=== PATIENT | female | born 1980 | race Caucasian/White ===

== ENCOUNTER 2021-09-18 16:25 | Emergency (ER) | payer BC, SELFPAY ==
[2021-09-18 16:37] VITALS: BP 127/99; PULSE 96; RESP 18; TEMP 36.2; O2SAT 100
--- NOTE | 2021-09-18 17:06 | PC.NURSE ---
PT CAME TO DESK TO REPORT HER PCP JUST CALLED HER BACK AND IS GOING TO CALL IN ABX . PT REPORTS SHE WILL COME BACK TO ED NEEDED BUT AT THIS TIME WOULD LIKE TO AVOID ED CHARGE IF PCP CAN CALL IN RX
== END 2021-09-18 17:06 | disposition left against medical advice (07) ==
PROVIDERS: PCP Nurse Practitioner
DX: M25.461 Effusion, right knee (principal)
CPT/HCPCS: 99199

== ENCOUNTER 2023-05-28 07:09 | Outpatient (CLI) | payer BC, SELFPAY ==
[2023-05-28 08:27] LABS: Basophils Absolute Auto 0.1 K/mm3 (0.0-0.1); Basophils Percent Auto 0.9 % (0.2-1.2); Eosinophils Absolute Auto 0.3 K/mm3 (0-0.3); Eosinophils Percent Auto 3.6 % (0-4.4); Hematocrit 43.4 % (37.0-47.0); Hemoglobin 14.6 g/dL (12.0-15.0); Immature Granulocyte Absolute 0.01 K/mm3 (0.00-0.031); Immature Granulocyte Percent A 0.1 % (0-0.5); Lymphocytes Absolute Auto 2.38 K/mm3 (0.9-3.2); Lymphocytes Percent Auto 31.7 % (18.3-44.2); Mean Corpuscular HGB Conc 33.6 g/dl (32-36); Mean Corpuscular Hemoglobin 30.5 pg (26-34); Mean Corpuscular Volume 90.8 fl (80-100); Mean Platelet Volume 9.6 fl (7.4-10.4); Monocytes Absolute Auto 0.6 K/mm3 (0.1-0.6); Monocytes Percent Auto 7.3 % (2.6-8.5); Neutrophils Absolute Auto 4.2 K/mm3 (1.3-6.7); Neutrophils Percent Auto 56.4 % (45.5-73.1); Platelet Count Result 332 k/mm3 (150-375); Red Blood Count 4.78 M/mm3 (4.2-5.4); Red Cell Distribution Width 12.3 % (11.5-14.5); White Blood Count 7.5 K/mm3 (4.5-10.0)
[2023-05-28 08:40] LABS: Alanine Aminotransferase 20 U/L (6-35); Albumin Level 4.4 g/dL (3.5-5.1); Alkaline Phosphatase 63 U/L (38-126); Anion Gap 6 mmol/L (8-16); Aspartate Amino Transferase 28 U/L (14-36); Bilirubin,Total 0.6 mg/dL (0.2-1.3); Blood Urea Nitrogen 14 mg/dL (7-17); Calcium 9.1 mg/dL (8.4-10.2); Carbon Dioxide 28 mmol/L (22-30); Chloride 104 mmol/L (98-107); Estimated Glomerular Filt Rate > 60; Glucose 99 mg/dL (65-110); Potassium 3.6 mmol/L (3.4-5.0); Sodium 138 mmol/L (137-145)
[2023-05-28 08:42] LABS: Rheumatoid Factor < 12.0 IU/ML (<12)
[2023-05-28 08:45] LABS: Hemoglobin A1C 5.3 % (<5.7)
[2023-05-30 22:05] LABS: Cyclic Citrullinated Peptide <16 Units (<20)
[2023-05-31 04:39] LABS: Thyroid Peroxidase Antibodies <1 IU/mL (<9)
[2023-05-31 22:49] LABS: Immunoglobulin A 179 mg/dL (47-310); TTG IGA AB <1.0 U/mL (<15.0)
== END 2023-05-28 07:10 | disposition home or self-care (01) ==
LOC: ANHLAB 07:14
PROVIDERS: PCP Nurse Practitioner; Visit Provider Nurse Practitioner
DX: M25.50 Pain in unspecified joint (principal); Z13.29 Encounter for screening for other suspected endocrine disorder; K92.1 Melena; Z13.228 Encounter for screening for other metabolic disorders; Z13.0 Encounter for screening for diseases of the blood and blood-forming organs and certain disorders involving the immune mechanism
CPT/HCPCS: 36415; 80053; 82784; 83036; 84443; 85025; 86038; 86200; 86364; 86376; 86430

== ENCOUNTER 2023-05-29 09:46 | Outpatient (CLI) | payer BC, SELFPAY ==
[2023-05-29 10:59] LABS: IFOB Positive Control Positive; Immunochemical Fecal Occult Bl Negative (N)
[2023-06-06 02:57] LABS: Calprotectin, Stool 21 mcg/g
== END 2023-05-29 09:47 | disposition home or self-care (01) ==
LOC: ANHLAB 09:53
PROVIDERS: PCP Nurse Practitioner; Visit Provider Nurse Practitioner
DX: K92.1 Melena (principal)
CPT/HCPCS: 82274; 83993

== ENCOUNTER 2023-06-09 01:27 | Day surgery (SDC) | payer BC, SELFPAY ==
[2023-06-06 13:52] VITALS: BMI 32.1
[2023-06-09 11:41] VITALS: BP 110/83; PULSE 73; RESP 18; TEMP 36.2; O2SAT 100
[2023-06-09] MEDS: LACTATED RINGERS 1,000 ML 150 ML IV CONT (11:49)
--- NOTE | 2023-06-09 12:28 | P.PNAN_ITS ---
Anes - Initial Pre Proc Eval Procedure: Operation Date: 06/09/23 13:00 Proposed Procedures p Colonoscopy - Elías Graham MD Date/Time: 06/09/23 12:28 Surgeon: Elías Graham MD Pre Op Diagnosis: Mixed irritable bowel syndrome, Patient Data Age: 43 Gender: F Height: 1.7 m Weight: 92 kg Last Vital Signs Temp 97.1 F L 06/09/23 11:41 Pulse 73 06/09/23 11:41 Resp 18 06/09/23 11:41 BP 110/83 06/09/23 11:41 Pulse Ox 100 06/09/23 11:41 O2 Del Method Room Air 06/09/23 11:41 Allergies Allergy/AdvReac Type Severity Reaction Status Date / Time adhesive Allergy Unknown BLISTERS Verified 06/09/23 11:39 Home Medications Medication Instructions Recorded Confirmed Type bupropion HCl 150 mg tablet,12 hr 150 mg PO DAILY 05/30/23 06/06/23 History sustained-release (Wellbutrin SR) buspirone 10 mg tablet 10 mg PO BID 05/30/23 06/06/23 History levonorgestrel 0.1 mg-ethinyl 1 tablet PO DAILY 05/30/23 06/06/23 History estradiol 20 mcg (21) tablet naltrexone 50 mg tablet 50 mg PO DAILY 05/30/23 06/06/23 History Patient hx anesthesia problems: none Family hx anesthesia problems: none Results Review: All pre-operative results and documents have been reviewed as part of the pre- operative evaluation. [facility] Past Medical History Medical History (Updated 05/30/23 @ 09:37 by ROSEY Mcadams) BRBPR (bright red blood per rectum) Surgical History Surgical History (Updated 05/30/23 @ 09:49 by ROSEY Mcadams) History of cholecystectomy 2016 Social History Social History Smoking status: Former smoker Tobacco type: e-cigarettes/vaping Additional smoking assessment comments: vaping for 1 year- quit in 2019 Alcohol intake: current Drinks per week: 4 Substance use type: marijuana Other substance usage details: edibles Living arrangements: with family Spiritual care concerns: No Anes - Eval Final PreProcedure Day of Procedure 06/09/23 12:28 Patient weight: obese Heart: regular rate and rhythm Lungs: clear to auscultation Airway: Mallampati scale class II Neurological: alert and oriented Last oral intake: >/= 8 hours ASA classification: II Emergent: no Anesthetic plan: proceed Anesthesia type and monitoring: general GIVS and standard monitoring Results Review: All pre-operative results and documents have been reviewed as part of the pre- operative evaluation. Informed Consent: The patient's anesthetic plan and its attendant risks and benefits were discussed with the patient/family/POA. Questions were solicited and answers provided to the satisfaction of the patient/family/POA.
--- NOTE | 2023-06-09 12:56 | WPDHPUPDATE1 ---
History and Physical Update Update Date/Time: 06/09/23 12:56 History and Physical has been reviewed, including an updated exam of the patient. There are NO changes in the patient's condition. Risks, benefits, and alternatives have been discussed and questions answered. Patient agrees to proceed with procedure.
[2023-06-09 13:14] VITALS: BP 111/72; PULSE 64; RESP 18; O2SAT 100
[2023-06-09 13:24] VITALS: BP 115/74; PULSE 64; RESP 18; O2SAT 97
[2023-06-09 13:34] VITALS: BP 107/70; PULSE 62; RESP 18; O2SAT 100
== END 2023-06-09 13:45 | disposition home or self-care (01) ==
PROVIDERS: PCP Nurse Practitioner; Visit Provider Internal Medicine Gastroenterology
PROC: 0DJD8ZZ Inspection of Lower Intestinal Tract, Via Natural or Artificial Opening Endoscopic (ICD-10-PCS; CPT 45378; principal; 2023-06-09 13:00)
DX: K58.2 Mixed irritable bowel syndrome (principal); K64.8 Other hemorrhoids; F17.290 Nicotine dependence, other tobacco product, uncomplicated; F12.90 Cannabis use, unspecified, uncomplicated; E66.9 Obesity, unspecified; Z68.31 Body mass index [BMI] 31.0-31.9, adult
CPT/HCPCS: 45380; 88305; J7120

== ENCOUNTER 2023-10-03 08:51 | Emergency (ER) | payer BC, SELFPAY ==
--- NOTE | ~2023-10-03 | CT_ITS ---
EXAMINATION: CT brain wo con INDICATION: Dizziness COMPARISON: 08/10/1940 TECHNIQUE: Standard unenhanced head CT. The dose-length product (DLP) was 605.33 mGy-cm. The mA was a djusted according to patient size. Iterative reconstruction technique was employed. FINDINGS: No intracranial hemorrhage, acute infarction, or abnormal mass lesion. The ventricles are n ormal. No abnormal mass effect or midline shift. The alejandro-white matter differentiation is normal. The basal cisterns are patent. The orbits are normal. The paranasal sinuses, mastoids and calvarium are normal. IMPRESSION: 1. No acute intracranial abnormality. Reviewed, dictated and finalized at location B. [employer]
--- NOTE | ~2023-10-03 | XR_ITS ---
EXAMINATION: XR chest 2V DATE: 10/03/2023 10:09 INDICATION: Dizziness, tachycardia TECHNIQUE: PA and lateral views of the chest are obtained. COMPARISON: 12/20/2014 FINDINGS: The lungs are free of acute opacities. No pleural effusion or pneumothorax. The cardiomedia stinal silhouette is normal. The visualized bones and soft tissues are unremarkable. IMPRESSION: 1. No acute cardiopulmonary abnormality. Reviewed, dictated and finalized at location B. CHECKER
--- NOTE | 2023-10-03 08:52 | ECG_ITS ---
Measurements Intervals [place] Rate: 105 P: 27 WV: 157 QRS: 33 QRSD: 90 T: 34 QT: 348 QTc: 460 Interpretive Statements SINUS TACHYCARDIA OTHERWISE NORMAL ELECTROCARDIOGRAM NO PREVIOUS ECG AVAILABLE FOR COMPARISON Electronically Signed On 10-03-2023 15:31:28 [employer]IN[employer] IN[employer] by Samuel Harris M.D.
[2023-10-03 09:06] VITALS: BP 146/97; PULSE 105; RESP 18; TEMP 36.6; O2SAT 97
[2023-10-03 09:24] VITALS: BP 125/90; PULSE 83; RESP 14; TEMP 36.5; O2SAT 97
[2023-10-03 09:36] VITALS: PULSE 99
[2023-10-03] MEDS: SODIUM CHLORIDE 0.9% IV 1,000 ML 999 ML IV CONT (10:25)
[2023-10-03 10:26] VITALS: BP 121/94; PULSE 80; RESP 14; O2SAT 100
[2023-10-03 10:26] LABS: Basophils Absolute Auto 0.1 K/mm3 (0.0-0.1); Basophils Percent Auto 0.8 % (0.2-1.2); Eosinophils Absolute Auto 0.2 K/mm3 (0-0.3); Eosinophils Percent Auto 2.4 % (0-4.4); Hematocrit 45.9 % (37.0-47.0); Hemoglobin 15.4 g/dL (12.0-15.0); Immature Granulocyte Absolute 0.02 K/mm3 (0.00-0.031); Immature Granulocyte Percent A 0.3 % (0-0.5); Lymphocytes Absolute Auto 2.47 K/mm3 (0.9-3.2); Lymphocytes Percent Auto 32.8 % (18.3-44.2); Mean Corpuscular HGB Conc 33.6 g/dl (32-36); Mean Corpuscular Volume 89.3 fl (80-100); Mean Platelet Volume 9.3 fl (7.4-10.4); Monocytes Absolute Auto 0.5 K/mm3 (0.1-0.6); Monocytes Percent Auto 7.2 % (2.6-8.5); Neutrophils Absolute Auto 4.3 K/mm3 (1.3-6.7); Neutrophils Percent Auto 56.5 % (45.5-73.1); Platelet Count Result 321 k/mm3 (150-375); Red Blood Count 5.14 M/mm3 (4.2-5.4); Red Cell Distribution Width 12.1 % (11.5-14.5); White Blood Count 7.5 K/mm3 (4.5-10.0)
[2023-10-03 10:36] LABS: Alanine Aminotransferase 15 U/L (6-35); Albumin Level 4.4 g/dL (3.5-5.1); Alkaline Phosphatase 67 U/L (38-126); Anion Gap 7 mmol/L (8-16); Aspartate Amino Transferase 24 U/L (14-36); Bilirubin,Total 0.6 mg/dL (0.2-1.3); Blood Urea Nitrogen 10 mg/dL (7-17); Calcium 9.7 mg/dL (8.4-10.2); Carbon Dioxide 29 mmol/L (22-30); Chloride 106 mmol/L (98-107); Estimated CRCL calculation 100 ml/min; Estimated Glomerular Filt Rate > 60; Glucose 103 mg/dL (65-110); Potassium 3.9 mmol/L (3.4-5.0); Sodium 142 mmol/L (137-145)
[2023-10-03 10:40] LABS: INR 0.9; Prothrombin Time 12.8 Seconds (11.1-14.7)
[2023-10-03 10:41] LABS: Partial Thromboplastin Time 32.3 SECONDS (22.3-36.8)
[2023-10-03 10:47] LABS: Troponin I < 0.012 ng/mL (0.000-0.034)
[2023-10-03 10:58] VITALS: BP 136/94; PULSE 78; RESP 22; O2SAT 100
[2023-10-03 12:08] VITALS: BP 128/93; PULSE 83; RESP 18; O2SAT 98
--- NOTE | 2023-10-03 12:13 | ED.ARRPALP ---
HPI - Arrhythmia/Palpitations General Chief Complaint: Arrhythmia/Palpitations Stated Complaint: elv bp, hr Time Seen by Provider: 10/03/23 09:54 Source: patient Mode of arrival: ambulatory Limitations: no limitations History of Present Illness HPI narrative: This is a 43-year-old female that presents to the emergency department for dizziness. Reports when she woke up this morning she did not feel right. She got ready and went to work. She had some worsening dizziness which she endorses as room spinning and lightheadedness. They took her blood pressure at work and it was elevated which concerned her and prompted her to be seen. Reports associated heart racing and intermittent paresthesias. Denies chest pain, shortness of breath, numbness or weakness. Related Data Home Medications Medication Instructions Recorded Confirmed bupropion HCl 150 mg tablet,12 hr 150 mg PO DAILY 05/30/23 06/06/23 sustained-release (Wellbutrin SR) buspirone 10 mg tablet 10 mg PO BID 05/30/23 06/06/23 levonorgestrel 0.1 mg-ethinyl 1 tablet PO DAILY 05/30/23 06/06/23 estradiol 20 mcg (21) tablet naltrexone 50 mg tablet 50 mg PO DAILY 05/30/23 06/06/23 Allergies Allergy/AdvReac Type Severity Reaction Status Date / Time adhesive Allergy Unknown BLISTERS Verified 10/03/23 09:23 Review of Systems Review of Systems: CONSTITUTIONAL: Denies fever EYES: Denies visual changes CARDIOVASCULAR: Denies chest pain RESPIRATORY: Denies dyspnea. GASTROINTESTINAL: Denies vomiting NEUROLOGIC: Denies numbness, or weakness. PSYCHIATRIC: Reports depression. All systems reviewed & are unremarkable except as noted in HPI and below PMFSH Past Medical History Medical History (Updated 10/03/23 @ 12:58 by Anitra Griffin PA-C) No active medical problems Surgical History Surgical History (Updated 05/30/23 @ 09:49 by ROSEY Mcadams) History of cholecystectomy 2016 Social History Social History Smoking status: Former smoker Tobacco type: e-cigarettes/vaping Additional smoking assessment comments: vaping for 1 year- quit in 2019 Alcohol intake: current Drinks per week: 4 Substance use type: marijuana Other substance usage details: edibles Living arrangements: with family Spiritual care concerns: No Exam Narrative: GENERAL: Well-appearing, well-nourished, and in no acute distress. HEAD: Normocephalic, atraumatic. EYES: PERRLA and EOMI. ENT: Nares clear, no rhinorrhea or epistaxis. Mucous membranes moist. Oropharynx without tonsillar hypertrophy exudate or other lesions. Bilateral TMs pearly alejandro non-bulging NECK: Supple. No adenopathy or masses. CHEST: Clear to auscultation. No respiratory distress. No wheezes rales or rhonchi HEART: Regular rate and rhythm. No murmur heard. Normal peripheral pulses. EXTREMITIES: Normal range of motion. No edema. Strength equal in bilateral upper and lower extremities (5/5) SKIN: Warm, dry, no rash. NEURO: No focal deficits. Alert and oriented x3. Cranial nerves 2-12 grossly intact. Normal [id number] PSYCH: Normal mood and affect Course Course Emergency Course: Patient updated on her workup and agrees with plan of care Vital Signs Vital signs: Vital Signs Temperature 97.8 F 10/03/23 09:06 Pulse Rate 105 H 10/03/23 09:06 Respiratory Rate 18 10/03/23 09:06 Blood Pressure 146/97 H 10/03/23 09:06 Pulse Oximetry 97 10/03/23 09:06 Temperature 97.7 F 10/03/23 09:24 Pulse Rate 83 10/03/23 12:08 Respiratory Rate 18 10/03/23 12:08 Blood Pressure 128/93 H 10/03/23 12:08 Pulse Oximetry 98 10/03/23 12:08 Oxygen Delivery Room Air 10/03/23 09:24 MDM - Arrhythmia/Palpitations MDM Narrative Medical decision making narrative: Patient presents to the ER for dizziness. Also reporting palpitations, intermittent paresthesias, elevated blood pressure and heart rate. She is afebrile and nontoxic appearing. She is neurologically intact. Nesha
== END 2023-10-03 13:08 | disposition home or self-care (01) ==
PROVIDERS: Emergency Provider Physician Assistant; PCP Nurse Practitioner
DX: R42 Dizziness and giddiness (principal); R00.2 Palpitations; Z87.891 Personal history of nicotine dependence; Z90.49 Acquired absence of other specified parts of digestive tract
CPT/HCPCS: 36415; 70450; 71046; 80053; 81025; 84484; 85025; 85610; 85730; 93005; 96360; 99284; J7030

== ENCOUNTER 2024-08-09 19:07 | Emergency (ER) | payer BC, SELFPAY ==
[2024-08-09 19:10] VITALS: BP 131/93; PULSE 89; RESP 16; TEMP 36.7; O2SAT 100
--- NOTE | 2024-08-09 19:14 | ED.SKABFB ---
HPI - Skin/Abscess/Foreign Bdy General Chief complaint: Allergic Reaction Stated complaint: Spider Bite Time Seen by Provider: 08/09/24 19:14 Source: patient Mode of arrival: ambulatory Limitations: no limitations History of Present Illness HPI narrative: 44 yo F presents with c/o itching and pain to bottom of R foot near 2nd toe for 4 to 5 days. Concerned she was bit by spider. Now has bruising and worsening of pain surrounding redness. Tender when ambulatory. still has itching. Afebrile. All systems reviewed and negative except as noted above. Related Data Home Medications ?Medication ?Instructions ?Recorded ?Confirmed ?Last Taken ?Type bupropion HCl 150 mg tablet,12 hr 150 mg PO DAILY 05/30/23 08/09/24 Unknown History sustained-release (Wellbutrin SR) buspirone 10 mg tablet 10 mg PO BID 05/30/23 08/09/24 Unknown History albuterol sulfate 90 mcg/actuation inhalation 08/09/24 Unknown History aerosol inhaler dextroamphetamine-amphetamine ER PO 08/09/24 Unknown History 10 mg 24hr capsule,extend release Allergies Allergy/AdvReac Type Severity Reaction Status Date / Time adhesive Allergy Unknown BLISTERS Verified 08/09/24 19:12 Review of Systems Review of Systems: CONSTITUTIONAL: Denies fever, chills, or sweats. EYES: Denies visual changes, redness, or discharge. ENT: Denies rhinorrhea, congestion, sore throat, or otalgia. CARDIOVASCULAR: Denies chest pain, palpitations, or edema. RESPIRATORY: Denies cough or dyspnea. GASTROINTESTINAL: Denies abdominal pain, nausea, vomiting, or diarrhea. GENITOURINARY: Denies dysuria or hematuria. SKIN: Denies rash or itching. Reports redness, bruising, tenderness, itching to plantar aspect right foot. MUSCULOSKELETAL: Denies back pain, joint pain, or myalgia. NEUROLOGIC: Denies headache, numbness, or weakness. PSYCHIATRIC: Denies anxiety or depression. All other systems reviewed are negative, except as documented in HPI. [facility] Past Medical History Medical History (Updated 08/09/24 @ 19:21 by Gertrudis Martinez NP) No active medical problems Surgical History Surgical History (Updated 05/30/23 @ 09:49 by ROSEY Mcadams) History of cholecystectomy 2016 Social History Social History Smoking status: Former smoker Tobacco type: e-cigarettes/vaping Additional smoking assessment comments: vaping for 1 year- quit in 2019 Alcohol intake: current Drinks per week: 4 Substance use type: marijuana Other substance usage details: edibles Living arrangements: with family Spiritual care concerns: No Comments At time of signature, agree with nursing past medical, surgical, social and family history. There is no relevant family history pertinent to the presenting complaint. Exam Narrative: GENERAL: This is a well-nourished, well-developed patient, in no apparent distress. HEAD: normocephalic, atraumatic. EYES: PERRL. Sclera clear/white. Vision is grossly intact. EARS: External ears normal NOSE: External nose normal NECK: Neck supple, non-tender without lymphadenopathy, masses or thyromegaly. CARDIOVASCULAR: Regular rate and rhythm without murmurs, gallops, or rubs. RESPIRATORY: Clear to auscultation. Breath sounds equal bilaterally. No wheezes, rales, or rhonchi. SKIN: warm, Dry, intact with no suspicious rash, good texture and turgor. erythema and swelling to plantar aspect R 2nd toe with tenderness on palpation. bruising surround the erythema. no drainage or fluctuance. NEURO: awake, alert, and oriented to person, place and time. There were no obvious focal neurologic abnormalities. EXTREMITIES: No joint tenderness, effusion, or edema noted. Course Course Level of Care: Express Care Visit Vital Signs Vital signs: Vital Signs Temperature 36.7 C 08/09/24 19:10 Pulse Rate 89 08/09/24 19:10 Respiratory Rate 16 08/09/24 19:10 Blood Pressure 131/93 H 08/09/24 19:10 Pulse Oximetry 100 08/09/24 19:10 Oxygen Delivery Room Air 08/09/24 19:10 Temperature 36.7 C 08/09/24 19:10 Pulse Rate 89 08/09/24 19:10 Respiratory Rate 16 08/09/24 19:10 Blood Pressure 131/93 H 08/09/24 19:10 Pulse Oximetry 100 08/09/24 19:10 Oxygen Delivery Room Air 08/09/24 19:10 Reviewed MDM - Skin/Abscess/Foreign Bdy MDM Narrative Medical decision making narrative: Patient is aware of diagnosis, understands and agrees to treatment plan. Anticipatory guidance given. Patient agrees to follow-up as directed and is aware of reasons to seek care at the emergency department. Portions of this record may have been created with voice recognition software Will treat insect bite with doxycycline, triamcinolone. Patient well-appearing, nontoxic. Discharge Plan Discharge Clinical Impression: Infected insect bite of right foot Qualifiers: Encounter type: initial encounter Qualified Code(s): S90.861A - Insect bite (nonvenomous), right foot, initial encounter Patient Disposition: Home, Self-Care Condition: Stable Instructions: Antibiotic Form, Insect Bite or Sting (ED) Additional Instructions: Take antibiotic as prescribed until gone. Take antibiotic with a full glass of water. Apply steroid cream 2 to 3 times a day to affected area. Take ibuprofen every 6-8 hours as needed for pain. Elevate when at rest. Follow-up with your primary care physician if symptoms not improving. Patient Language: Belizean Prescriptions: New doxycycline hyclate 100 mg capsule 100 mg PO BID 7 Days Qty: 14 0RF triamcinolone acetonide 0.1 % cream 1 applic topical BID PRN (Reason: itching) Qty: 15 0RF No Action dextroamphetamine-amphetamine 10 mg capsule,extended release 24hr PO albuterol sulfate 90 mcg/actuation HFA aerosol inhaler INHALATION bupropion HCl [Wellbutrin SR] 150 mg tablet sustained-release 12 hr 150 mg PO DAILY buspirone 10 mg tablet 10 mg PO BID Follow-up/Referrals: Angelita,NNEKA Johnson [Primary Care Provider] - Time of Disposition: 19:21
== END 2024-08-09 19:25 | disposition home or self-care (01) ==
PROVIDERS: Emergency Provider Nurse Practitioner Family; PCP Nurse Practitioner
DX: S90.861A Insect bite (nonvenomous), right foot, initial encounter (principal); W57.XXXA Bitten or stung by nonvenomous insect and other nonvenomous arthropods, initial encounter; Z87.891 Personal history of nicotine dependence; F12.90 Cannabis use, unspecified, uncomplicated
CPT/HCPCS: 99213; G0463

== ENCOUNTER 2024-12-24 22:40 | Emergency (ER) | payer BC, SELFPAY ==
--- NOTE | ~2024-12-24 | XR_ITS ---
EXAMINATION: XR elbow LT min 3V DATE: 12/25/2024 01:40 INDICATION: Left elbow injury post fall TECHNIQUE: Anteroposterior, two oblique and lateral views of the left elbow were obtained. COMPARISON: None. FINDINGS: Alignment is normal. No fracture or joint effusion. Joint spaces are normal. Soft tissue swelling pos terior to the proximal left ulna. IMPRESSION: 1. No left elbow joint effusion or osseous abnormality. Reviewed, dictated and finalized at location A.
--- NOTE | ~2024-12-24 | XR_ITS ---
XR forearm LT 2V Ordering provider: Chayo Jaimes MD History: . fall, pain . Comparison: None. FINDINGS: BONES: No acute fracture or dislocation. JOINT SPACES: Normal. SOFT TISSUES: Normal. IMPRESSION: No acute osseous abnormality left forearm. Reviewed, dictated and finalized at location A.
[2024-12-24 22:44] VITALS: BP 144/96; PULSE 85; RESP 15; TEMP 36.7; O2SAT 98
--- NOTE | 2024-12-25 01:31 | ED_ITS ---
HPI - Extremity Injury (Upper) General Chief Complaint: Extremity Injury, Upper Stated Complaint: Injury to left elbow/forearm from fall Time Seen by Provider: 12/25/24 00:49 History of Present Illness HPI narrative: 44-year-old female presents to the emergency department for a left forearm/elbow injury that occurred around 10:00 p.m. today. Patient states she went to sit down and missed the chair and hit her left elbow/forearm on a sharp shelf next to her. She did not hit her head or lose consciousness. She denies other injuries acquired. She is presenting with a bruise and superficial laceration to the proximal ulna and tenderness to this region. Tdap is up-to-date. Bleed ing is controlled. Related Data Home Medications ?Medication ?Instructions ?Recorded ?Confirmed ?Last Taken ?Type bupropion HCl 150 mg tablet,12 hr 150 mg PO DAILY 05/30/23 08/09/24 Unknown History sustained-release (Wellbutrin SR) buspirone 10 mg tablet 10 mg PO BID 05/30/23 08/09/24 Unknown History albuterol sulfate 90 mcg/actuation inhalation 08/09/24 Unknown History aerosol inhaler dextroamphetamine-amphetamine ER PO 08/09/24 Unknown History 10 mg 24hr capsule,extend release Allergies Allergy/AdvReac Type Severity Reaction Status Date / Time adhesive Allergy Unknown BLISTERS Verified 12/24/24 22:41 Review of Systems Review of Systems: All systems reviewed & are unremarkable except as noted in HPI and below PMFSH Past Medical History Medical History No active medical problems Surgical History Surgical History History of cholecystectomy 2016 Social History Social History Smoking status: Former smoker Tobacco type: e-cigarettes/vaping Additional smoking assessment comments: vaping for 1 year- quit in 2019 Alcohol intake: current Drinks per week: 4 Substance use type: marijuana Other substance usage details: edibles Living arrangements: with family Spiritual care concerns: No Exam Narrative: GENERAL: Well-appearing, well-nourished, and in no acute distress. HEAD: Normocephalic, atraumatic. EYES: EOMI. ENT: Nares clear, no rhinorrhea or epistaxis. Mucous membranes moist. NECK: Supple. CHEST: Clear to auscultation. No respiratory distress. HEART: Regular rate and rhythm. No murmur heard. Normal peripheral pulses. EXTREMITIES: Ecchymosis to the proximal left ulna with overlying tenderness and a 2 cm superficial laceration with no active bleeding, no deep structures or foreign bodies visualized. Minimal tenderness over the olecranon and just inferior to the olecranon. No obvious deformity. Full range of motion of elbow. No tenderness remainder of extremity, wrist or hand. Radial pulses 2+. Sensation intact. Radial, median and ulnar nerves are intact. SKIN: Warm, dry, no rash. NEURO: No focal deficits. Alert and oriented x3 Course Vital Signs Vital signs: Vital Signs Temperature 98.1 F 12/24/24 22:44 Pulse Rate 85 12/24/24 22:44 Respiratory Rate 15 12/24/24 22:44 Blood Pressure 144/96 H 12/24/24 22:44 Pulse Oximetry 98 12/24/24 22:44 Temperature 98.1 F 12/24/24 22:44 Pulse Rate 85 12/24/24 22:44 Respiratory Rate 15 12/24/24 22:44 Blood Pressure 144/96 H 12/24/24 22:44 Pulse Oximetry 98 12/24/24 22:44 MDM - Extremity Injury (Upper) MDM Narrative Medical decision making narrative: 44-year-old female presents to the emergency department for a left forearm/elbow injury that occurred at 10:00 p.m. after mechanical fall. See HPI for further history. She did not hit her head and denies other injuries acquired. Vitals with elevated blood pressure, is unremarkable. Exam is notable for ecchymosis and tenderness to the proximal left ulna with a 2 cm superficial lacerations with no active bleeding. No deep structures or foreign bodies are visualized. Primary closure not required given superficial nature of laceration/abrasion. Patient has full active and passive range of motion of her left elbow and no tenderness remainder extremity. She is neurovascularly intact. X-ray of of the left forearm and elbow show no acute osseous findings. Patient updated on results. Advised to RICE, take Tylenol and ibuprofen prn for pain. Advised follow-up with PCP discussed return precautions. She is agreeable with the plan verbalized understanding. Discharged stable. Discharge Plan Discharge Clinical Impression: Contusion of elbow Qualifiers: Encounter type: initial encounter Laterality: left Qualified Code(s): S50.02XA - Contusion of left elbow, initial encounter Patient Disposition: Home Condition: Stable Instructions: Antibiotic Form, Contusion in Adults (ED) Additional Instructions: You were evaluated in the emergency department for arm and elbow pain after a fall. The x-ray showed no broken bones. Please rest, ice, take Tylenol, ibuprofen as needed for pain and follow-up with primary care provider. Return to the emergency department if you develop any new or worsening symptoms. Patient Language: Vietnamese Prescriptions: No Action dextroamphetamine-amphetamine 10 mg capsule,extended release 24hr PO albuterol sulfate 90 mcg/actuation HFA aerosol inhaler INHALATION doxycycline hyclate 100 mg capsule 100 mg PO BID 7 Days Qty: 14 0RF triamcinolone acetonide 0.1 % cream 1 applic topical BID PRN (Reason: itching) Qty: 15 0RF bupropion HCl [Wellbutrin SR] 150 mg tablet sustained-release 12 hr 150 mg PO DAILY buspirone 10 mg tablet 10 mg PO BID Follow-up/Referrals: Angelita,NNEKA Johnson [Primary Care Provider] -
[2024-12-25 02:10] VITALS: BP 132/84; PULSE 80; RESP 15; O2SAT 98
--- OUTSIDE RECORDS SUMMARY | 2024-12-25 15:42 | XMS_ITS | Encounter Summary ---
Author Organization [facility] Address [address] [place] [id number] Care Team Providers Care Wet Char Conveyor Tender Name Role Phone [employer] SIMULATION ENGINEER Primary Care Provider Radha Chan SIMULATION ENGINEER Primary Care Provider [phone] Encounter Details Date Type Department Care Team (Late Contact Info) Description 06/20/2021 [employer] Message IVFXPERT [facility] [address] [place] [id number] Mychart, [facility] Provider Full IMASTEt proxy access to your teen daughters Social History Tobacco Use Types Packs/Day Years Used Date Smoking Tobacco: Never Smokeless Tobacco: Never Alcohol Use Standard Drinks/Week Comments Yes 0 (1 standard drink = 0.6 oz pur e alcohol) ocassionally PHQ-2 Answer Date Recorded PHQ-2 Score - If the patient scores above 3, please move on to questions 3-9 0 04/25/2021 Comments No Sex and Gender Information Value Date Recorded Sex Assigned at Female 09/14/2024 8:12 AM [employer]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 No / Unsure 06/04/2021 8:42 AM CDT documented as of this encounter Plan of Treatment Upcoming Encounters Date Type Department Care Team (Late Contact Info) Description 02/11/2025 8:00 AM CDT Office Visit [facility] [place] [address] [place] [address] Radha Goldstein NP [address] [place] [address] documented as of this encounter Visit Diagnoses Not on filedocumented in this encounter Additional Health Concerns Assessment Noted Time PHQ-9 Depression Total Score: 5 04/25/20 21 11:32 AM CDT documented as of this encounter Care Teams Wet Char Conveyor Tender Relationship Specialty Start Date End Date Sunshine Pride NP PCP - General NURSE PRACTITIONER 04/25/21 07/12/21 Radha Goldstein NP [address] [place] [address] PCP - General NURSE PRACTITIONER 07/13/21 documented as of this encounter
--- OUTSIDE RECORDS SUMMARY | 2024-12-25 15:42 | XMS_ITS | Encounter Summary ---
Author Organization [facility] Address [address] [place] [address] Care Team Providers Care Event Planning Intern Name Role Phone Radha Goldstein NP Primary Care Provider [phone] Encounter Details Date Type Department Care Team (Late Contact Info) Description 06/06/2023 Fabulyzerhart Message Enc [address] [place] [address] [phone] Radha Goldstein NP [address] [place] [address] [phone] lab results Social History Tobacco Use Types Packs/Day Years Used Date Smoking Tobacco: Former Passive Smoke Exposure: Past Smokeless Tobacco: Never Comments:The provider can pr ovide you with more information about quitting. 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 Legal Sex Female 7:25 PM CDT Gender Identity Not on file Sexual Orientation Not on file documented as of this encounter Plan of Treatment Upcoming Encounters Date Type Department Care Team (Late st Contact Info) Description 02/11/2025 8:00 AM CDT Office Visit [place] [id number] [address] [phone] Radha Goldstein NP [address] [place] [address] documented as of this encounter Visit Diagnoses Not on filedocumented in this encounter Additional Health Concerns Assessment Noted Time PHQ-9 Depression Total Score: 14 023 3:32 PM CDT documented as of this encounter Care Teams Event Planning Intern Relationship Specialty Start Date End Date Radha Goldstein NP [address] [place] [address] PCP - General NURSE PRACTITIONER 07/13/21 documented as of this encounter
--- OUTSIDE RECORDS SUMMARY | 2024-12-25 15:42 | XMS_ITS | Encounter Summary ---
Author Organization [facility] Address [address] [place] [address] Care Team Providers Care House Player Name Role Phone Radha Goldstein NP Primary Care Provider [phone] Encounter Details Date Type Department Care Team (Late Contact Info) Description 10/31/2023 MyChart Message Enc [facility] [address] [place] [address] [phone] Radha Goldstein NP [address] [place] [address] [phone] Barbara Social History Tobacco Use Types Packs/Day Years Used Date Smoking Tobacco: Former Cigarettes Q uit: 06/16/2017 Passive Smoke Exposure: Past Smokeless Tobacco: Never Alcohol Use Standard Drinks/Week Comments Yes 6.7 (1 standard drink = 0.6 oz p ure alcohol) ocassionally PHQ-2 Answer Date Recorded Patient Health Questionnaire-2 Score 3 05/20/2023 Comments No Sex and Gender Information Value Date Recorded Sex Assigned at Female 09/14/2024 8:12 AM 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 Legal Sex Female 7:25 PM CDT Gender Identity Not on file Sexual Orientation Not on file documented as of this encounter Plan of Treatment Upcoming Encounters Date Type Department Care Team (Late Contact Info) Description 02/11/2025 8:00 AM CDT Office Visit [facility] [address] [phone] Radha Goldstein NP [address] [place] [address] documented as of this encounter Visit Diagnoses Not on filedocumented in this encounter Additional Health Concerns Assessment Noted Time PHQ-9 Depression Total Score: 14 023 3:32 PM CDT documented as of this encounter Care Teams House Player Relationship Specialty Start Date End Date Radha Goldstein NP [address] [place] [address] PCP - General NURSE PRACTITIONER 07/13/21 documented as of this encounter
--- OUTSIDE RECORDS SUMMARY | 2024-12-25 15:42 | XMS_ITS | Clinical Summary ---
Author Organization [facility] Address [address] [facility] [address] [place] [address] Care Team Providers Care Alpine Guide Name Role Phone Miscellaneous, Not In File Primary Care Provider Unavailable Allergies No known active allergies Medications aspirin 325 mg EC tablet take 1 Tablet by oral route 2 times every day for 14 28 0 10/01/19 17 Active docusate sodium (COLACE) 100 mg capsule take 1 capsule (100MG) by oral route every day at bedtime as needed 30 0 10/01/19 17 Active methylPREDNISolone (MEDROL DOSEPACK) 4 mg DosepackIndications :Exacerbation of asthma, unspecified asthma severity, unspecified whether persistent Take 6 tabs on day 1, reduce dose by 1 daily until prescription is complete. 1 packet 02/23/20 24 Active benzonatate (TESSALON) 200 mg capsuleIndications: Acute nasopharyngitis Take 1 capsule (200 mg total) by mouth 3 (three) times a day as needed for cough keep tessalon out of reach of children, especially children under the age of 10, due to possible serious risk such as if ingested by children under the age of 10. 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 Gender Identity Not on file Sexual Orientation Not on file Obstetrics History Last Filed Vital Signs Vital Sign Reading Time Taken Comments Blood Pressure 127/80 02/21/2024 7:26 PM CDT Pulse 108 02/21/2024 7:26 PM CDT Temperature 37.3 C (99.2 F) 02/21/2024 7:26 PM CDT Respiratory Rate 20 02/21/2024 7:26 PM CDT Oxygen Saturation 98% 02/21/2024 7:26 PM CDT Inhaled Oxygen Concentration - - Weight 88.9 kg (196 lb) 02/21/2024 7:26 PM CDT Height 167.6 cm (5' 6 ) 02/21/2024 7:26 PM CDT Body Mass Index 31.64 02/21/2024 7:26 PM CDT Plan of Treatment Health Maintenance Due Date Last Done Comments Breast Cancer Screening-Mammogram 1982 Cervical Cancer Screening 1982 Depression Screening 1982 Hepatitis C Screening 1982 Varicella Vaccines (1 of 2 - 13+ 2-dose series) 1995 Regular Well Visit/Exam 18-64 2000 Pneumococcal vaccine <65 (1 of 2 - PCV) 2001 Covid-19 Vaccine (3 - 2023-2 5 season) 2024 09/28/2020, 08/31/2020 Influenza Vaccine (Season Ended) 2025 05/17/2022 DTaP/Tdap/Td Vaccine (2 - Td or Tdap) 04/25/2031 04/25/2021 Hepatitis B Screening Completed 03/15/2020 HPV Vaccines Aged Out No longer eligi ble based on patient's age to complete this topic Insurance [employer] [place] Care Teams Alpine Guide Relationship Specialty Start Date End Date Miscellaneous, Not In File PCP - General 10/09/16
--- OUTSIDE RECORDS SUMMARY | 2024-12-25 15:42 | XMS_ITS | Encounter Summary ---
Author Organization [facility] Address [address] [place] [address] Care Team Providers Care Pmp Project Manager Name Role Phone Radha Goldstein NP Primary Care Provider [phone] [phone] Encounter Details Date Type Department Care Team (Late st Contact Info) Description 09/27/2022 Gameleon Message Enc [facility] Medical [facility] Family Medicine - [place] [address] [facility] [address] [place] [address] [phone] Radha Goldstein, BHARGAV [address] [place] [address] Question regarding CBC W/DIFF AUTOMATED Social History Tobacco Use Types Packs/Day Years Used Date Smoking Tobacco: Former Smokeless Tobacco: Never Comments:The provider can pr ovide you with more information about quitting. 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 No / Unsure 09/27/2022 8:49 AM FREIGHT LOADER documented as of this encounter Plan of Treatment Upcoming Encounters Date Type Department Care Team (Late st Contact Info) Description 02/11/2025 8:00 AM CDT Office Visit [facility] Medical [facility] Family Medicine - [place] [address] [facility] [address] [place] [address] Radha Goldstein NP [address] [place] [address] documented as of this encounter Visit Diagnoses Not on filedocumented in this encounter Additional Health Concerns Assessment Noted Time PHQ-9 Depression Total Score: 12 022 9:04 AM CDT documented as of this encounter Care Teams Pmp Project Manager Relationship Specialty Start Date End Date Rdaha Goldstein NP [address] [place] [address] PCP - General NURSE PRACTITIONER 07/13/21 documented as of this encounter
--- OUTSIDE RECORDS SUMMARY | 2024-12-25 15:42 | XMS_ITS | Encounter Summary ---
Author Organization [facility] Address [address] [place] [address] Care Team Providers Care Process Assistant Name Role Phone Radha Goldstein NP Primary Care Provider [phone] Encounter Details Date Type Department Care Team (Late st Contact Info) Description 08/09/2024 Baxano Message Enc [facility] Medical Group Family Medicine - [place] [address] [facility] [address] [place] [address] [phone] Radha Goldstein NP [address] [place] [address] Spider bite? Social History Tobacco Use Types Packs/Day Years Used Date Smoking Tobacco: Former Cigarettes Q uit: 06/16/2017 Passive Smoke Exposure: Past Smokeless Tobacco: Never Alcohol Use Standard Drinks/Week Comments Yes 1.7 (1 standard drink = 0.6 oz p ure alcohol) Very little consumtion PHQ-2 Answer Date Recorded Patient Health Questionnaire-2 Score 2 07/30/2024 Comments No Sex and Gender Information Value Date Recorded Sex Assigned at Female 09/14/2024 8:12 AM ARBOR END MAINSPRING FORMER Legal Sex Female 7:25 PM CDT Gender Identity Not on file Sexual Orientation Not on file documented as of this encounter Progress Notes * Radha Goldstein NP - 08/09/2024 8:57 AM CST MDdatacor message sent about a new issue issue so would need office visit for eval and recommendations. R END MAINSPRING FORMER documented in this encounter Plan of Treatment Upcoming Encounters Date Type Department Care Team (Late st Contact Info) Description 02/11/2025 8:00 AM CDT Office Visit [facility] Medical [facility] Family Medicine - [place] [address] [facility] [address] [place] [address] Radha Goldstein NP [address] [place] [address] documented as of this encounter Visit Diagnoses Not on filedocumented in this encounter Additional Health Concerns Assessment Noted Time PHQ-9 Depression Total Score: 9 07/30/20 24 8:14 AM ARBOR END MAINSPRING FORMER documented as of this encounter Care Teams Process Assistant Relationship Specialty Start Date End Date Radha Goldstein NP [address] [place] [address] PCP - General NURSE PRACTITIONER 07/13/21 documented as of this encounter
--- OUTSIDE RECORDS SUMMARY | 2024-12-25 15:42 | XMS_ITS | Encounter Summary ---
Author Organization [facility] Address [address] [place] [address] Care Team Providers Care Salesperson Burial Needs Name Role Phone Radha Goldstein ORE SMELTER Primary Care Provider [phone] Encounter Details Date Type Department Care Team (Late st Contact Info) Description 02/19/2023 MyChart Message Enc [facility] Medical [facility] [address] [place], [place] [phone] 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 Legal Sex Female 7:25 PM CDT Gender Identity Not on file Sexual Orientation Not on file documented as of this encounter Plan of Treatment Upcoming Encounters Date Type Department Care Team (Late st Contact Info) Description 02/11/2025 8:00 AM CDT Office Visit [facility] Medical [facility] Family Medicine [facility] [address] [facility] [address] [place], [place] [phone] Radha Goldstein NP [address] [place], [place] [address] documented as of this encounter Visit Diagnoses Not on filedocumented in this encounter Additional Health Concerns Assessment Noted Time PHQ-9 Depression Total Score: 12 022 9:04 AM CDT documented as of this encounter Care Teams Salesperson Burial Needs Relationship Specialty Start Date End Date Radha Goldstein NP [address] [place] [address] PCP - General NURSE PRACTITIONER 07/13/21 documented as of this encounter
--- OUTSIDE RECORDS SUMMARY | 2024-12-25 15:42 | XMS_ITS | Clinical Summary ---
Author Organization [facility] Address [address] [place] [address] Care Team Providers Care Pharmacy Technician Trainee Name Role Phone Derian Pires MD Primary Care Provider [phone] Allergies Active Allergy Reactions Criticality Noted Date Comments Adhesive Rash Medium 11/26/2016 Medications albuterol sulfate (VENTOLIN HFA) 90 mcg/Actuation inhaler 2 times daily as needed . 08/25/2011 Active acetaminophen (TYLENOL) 325 mg tablet Take 325 mg by mouth every 4 hours as needed (headache). Active no122/iron/foli c acid ( MULTI ORAL) Take 2 Tablets by mouth daily. Active OTHER BioCell Collagen - 2 pills Daily . Active Fish Oil-Salem-3 Fatty Acids (FISH OIL) 360-1,200 mg Capsule Take 1 Capsule by mouth daily. Active Active Problems Problem Noted Date Diagnosed Date Chronic daily headache 01/28/2018 Chronic migraine without aur a without status migrainosus, not intractable 10/25/2014 Head injury 08/29/2014 Depression 08/29/2014 Extrinsic asthma, unspecified 08/29/2014 Resolved Problems Problem Noted Date Diagnosed Date Resolved Date Chronic migraine without aura 08/30/2014 10/25/2014 Family History Medical History Relation Name Comments Hypertension Father Diabetes Mother Hypertension Mother Relation Name Status Comments Father Mother Social History Tobacco Use Types Packs/Day Years Used Date Smoking Tobacco: Former Smokeless Tobacco: Never Alcohol Use Standard Drinks/Week Comments Yes 0 (1 standard drink = 0.6 oz pure alcohol) 1-2 glasses of wine 3 days per week Comments No Sex and Gender Information Value Date Recorded Sex Assigned at Not on file Legal Sex Female 4:49 AM CLEANERS Gender Identity Not on file Sexual Orientation Not on file Last Filed Vital Signs Vital Sign Reading Time Taken Comments Blood Pressure 116/80 01/14/2018 9:19 AM CDT Pulse 76 01/14/2018 9:19 AM CDT Temperature - - Respiratory Rate - - Oxygen Saturation - - Inhaled Oxygen Concentration - - Weight 90.3 kg (199 lb) 01/14/2018 9:19 AM CDT Height 167.6 cm (5' 6 ) 01/14/2018 9:19 AM CDT Body Mass Index 32.12 01/14/2018 9:19 AM CDT Plan of Treatment Health Maintenance Due Date Last Done Comments DTAP/TDAP/TD VACCINES (1 - Tdap) 2001 HEPATITIS B VACCINES (1 of 3 - 19+ 3-dose series) 2001 HPV/Cotest (21-29) 2003 CERVICAL CANCER SCREENING 2012 HPV/Cotest (30-65) 2012 PAP SMEAR 2012 BREAST CANCER SCREENING 2022 INFLUENZA VACCINE (#1) 2024 HPV VACCINES Aged Out No longer eligi ble based on patient's age to complete this topic Insurance [facility] [employer] ACCESS CHOICE Care Teams Pharmacy Technician Trainee Relationship Specialty Start Date End Date Derian Pires MD [address] [place] [address] PCP - General 08/29/15
--- OUTSIDE RECORDS SUMMARY | 2024-12-25 15:42 | XMS_ITS | Referral Summary ---
Author Organization [facility] Address [address] [place] [address] Care Team Providers Care Powertrain Design Engineer Name Role Phone Miscellaneous, Not In File [...] Active Active Problems No known active problems Social History Tobacco Use Types Packs/Day Years Used Date Smoking Tobacco: Never Assessed Comments Unknown Sex and Gender Information Value Date Recorded Sex Assigned at Not on file Legal Sex Female 4:22 AM FARM RANCHER Gender Identity Not on file Sexual Orientation [...] 02/21/2024 7:26 PM CDT Plan of Treatment Not on file Insurance [employer] [place] Care Teams Powertrain Design Engineer Relationship Specialty Start Date End Date Miscellaneous, Not In File PCP - General 10/09/16
--- OUTSIDE RECORDS SUMMARY | 2024-12-25 15:42 | XMS_ITS | Encounter Summary ---
Author Organization [facility] Address [address] [place] [address] Care Team Providers Care Parachute Line Tier Name Role Phone [employer] ANY COMMODITY BUYER Primary Care Provider Radha Chan ANY COMMODITY BUYER Primary Care Provider [phone] Encounter Details Date Type Department Care Team (Latest Contact Info) Description 05/03/2021 InSpat Message Enc [facility] [address] [place] [address] Sunshine Pride, ANY COMMODITY BUYER RE: Medication Questions Social History Tobacco Use Types Packs/Day Years [...] Sex Assigned at Female 09/14/2024 8:12 AM CROSS ENTERPRISE INTEGRATOR Legal Sex Female 7:25 PM CDT Gender Identity Not on file Sexual Orientation Not on file COVID-19 Exposure Response Date Recorded In the last month, have you been in contact with someone who was confirmed or suspected to have Coronavirus / COVID-19? No / Unsure 04/25/2021 10:30 AM CDT documented as of this encounter Plan of Treatment Upcoming Encounters Date Type Department Care Team (Late st Contact Info) Description 02/11/2025 8:00 AM CDT Office Visit [facility] Medical [facility] Family Medicine - [place] [address] [facility] [address] [place] [address] Radha Goldstein NP [address] [place] [address] [place] [address] documented as of this encounter Visit Diagnoses Not on filedocumented in this encounter Additional Health Concerns Assessment Noted Time PHQ-9 Depression Total Score: 5 04/25/20 21 11:32 AM CDT documented as of this encounter Care Teams Parachute Line Tier Relationship Specialty Start Date End Date Sun[employer] Pride NP PCP - General NURSE PRACTITIONER 04/25/21 07/12/21 Radha Goldstein NP [address] [place] [address] PCP - General NURSE PRACTITIONER 07/13/21 documented as of this encounter
--- OUTSIDE RECORDS SUMMARY | 2024-12-25 15:42 | XMS_ITS | Clinical Summary ---
Author Organization [facility] Address [address] [place] [address] Care Team Providers Care Electric Needle Specialist Name Role Phone Radha Goldstein NP Primary Care Provider [phone] Allergies Active Allergy Reactions Criticality Noted Date Comments Tape Rash Medium 11/26/2016 Medications Multiple Vitamins-Minerals (MULTIVITAMIN ADULT OR) Active ibuprofen 800 MG tablet 1 Active cetirizine 10 MG tablet Take 1 tablet (10 mg total) by mouth daily. Active cyanocobalamin 250 MCG Tab Take 1 tablet (250 mcg total) by mouth daily. Active levonorgestrel (MIRENA) 20 MCG/DAY IUD 2 Active albuterol sulfate HFA 108 (90 Base) MCG/ACT inhalerIndication s:Mild intermittent asthma without complication (HHS/HCC) Inhale 2 puffs into the lungs every 6 (six) hours as needed for Wheezing. 18 g 4 Active busPIRone (BUSPAR) 10 MG tabletIndications :Generalized anxiety disorder Take 1 tablet (10 mg total) by mouth 2 (two) times daily. 180 tablet 1 4 Active buPROPion SR (WELLBUTRIN SR) 150 MG 12 hr tabletIndications :Anxiety and depression Take 1 tablet (150 mg total) by mouth daily. 90 tablet 1 5 Active amphetamine-dextr oamphetamine XR (ADDERALL XR) 20 MG 24 hr capsuleIndication s:Attention deficit hyperactivity disorder (ADHD), combined type Take 1 capsule (20 mg total) by mouth every morning. 30 capsule 5 Active amphetamine-dextr oamphetamine XR (ADDERALL XR) 20 MG 24 hr capsuleIndication s:Attention deficit hyperactivity disorder (ADHD), combined type Take 1 capsule (20 mg total) by mouth every morning. 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 Is hypermobile.Autoimmune workup in the past has been negative. Pt was told from a past provider she has fibromyalgia but pt is not really sure. She also wonders based on her age some symptoms she suffers from could be perimenopausal. Assessment & Plan (07/30/2024 8:56 AM INSTRUMENT AND CONTROL TECHNICIAN): I went over with pt information that I know about EDS and how there are different types. We went over management of hypermobility and recommendations on specialists/referrals that can be placed for further evaluation if necessary. Attention deficit hyperactiv ity disorder (ADHD), combined type 01/07/2024 Overview (07/30/2024): Chronic condition. Doing well with Adderall 20 mg once daily. Assessment & Plan (07/30/2024 8:57 AM INSTRUMENT AND CONTROL TECHNICIAN): Chronic condition. Controlled. No change at this time. CSA complated today. Denies side effects with use of Adderall. Constipation, unspecified constipation type 04/26 Generalized anxiety disorder 05/20/2023 Overview (07/30/2024): Chronic condition. Currently doing well with Wellbutrin 150 mg a day and buspirone 10 mg twice daily. Assessment & Plan (07/30/2024 8:16 AM INSTRUMENT AND CONTROL TECHNICIAN): Chronic condition. Controlled. No med changes at this time. Chronic pain 06/04/2016 Chronic migraine without aur a without status migrainosus, not intractable 10/25/2014 Overview (07/30/2024): Chronic condition. Receives botox to help with her migraines. Assessment & Plan (07/30/2024 8:57 AM INSTRUMENT AND CONTROL TECHNICIAN): Chronic condition. Controlled with botox injections. Depression 08/29/2014 Extrinsic asthma ([facility]) 08/29/2014 Allergic rhinitis 02/14/2014 Insomnia 02/14/2014 Anxiety 01/13/2014 Acne 08/11/2012 Resolved Problems Problem Noted Date Diagnosed Date Resolved Date Blood in stool 05/20/2023 07/30/2024 Alcohol use 05/20/2023 2023 Cellulitis of right knee 10/06/202101/2024 Urticaria 02/15/2020 07/30/2024 Acute pain of right shoulder 01/26/2020 07/30/2024 Chronic daily headache 01/28/201807/30 Obesity 08/11/2012 07/30/2024 Encounters Date Type Department Care Team Description 10/25/2024 MyChart Message Enc [address] [place] [address] Radha Goldstein NP Brianna Miller 09/27/2024 Orders Only [place] [id number] [facility] [address] [place] [address] Radha Goldstein NP from Last 3 Months Immunizations Immunization Administration Dates Next Due Fluzone 6 Months+ Quad (0.5 mL Prefilled Syringe ) 05/17/2022 Hepatitis B (Generic: Adult) 03/15/2020 Hepatitis B(Engerix B Adult) 03/15/2020 MODERNA COVID-19 (12+) MRNA, LNP-S, PF, 100 MCG/ 0.5 ML DOSE 09/28/2020,08/31/2020 Tdap (Adacel) 04/25/2021 Family History Medical History Relation Comments Cancer Father Diabetes Father Drug Abuse Father Opioids Hypertension Father Mental Health Father Bi polar and ellis izophrenia Breast Cancer Maternal Grandmother reoccurance later in life. Double mastectomy. Cancer Mother cancer-renal kyleigh l carcinoma with mets Diabetes Mother Early Mother Aug 2022 Hypertension Mother Pancreatic cancer Mother Relation Status Comments Father Alive Maternal Grandmother Mother Alive Social History Tobacco Use Types Packs/Day Years Used Date Smoking Tobacco: Former Cigarettes Q uit: 06/16/2017 Passive Smoke Exposure: Past Smokeless Tobacco: Never Tobacco Cessation:Counseling Given: No Alcohol Use Standard Drinks/Week Comments Yes 1.7 (1 standard drink = 0.6 oz p ure alcohol) Very little consumtion PHQ-2 Answer Date Recorded Patient Health Questionnaire-2 Score 2 07/30/2024 Comments No Sex and Gender Information Value Date Recorded Sex Assigned at Female 09/14/2024 8:12 AM INSTRUMENT AND CONTROL TECHNICIAN Legal Sex Female 7:25 PM CDT Gender Identity Not on file Sexual Orientation Not on file Last Filed Vital Signs Vital Sign Reading Time Taken Comments Blood Pressure 96/64 07/30/2024 8:10 AM INSTRUMENT AND CONTROL TECHNICIAN Pulse 81 07/30/2024 8:10 AM INSTRUMENT AND CONTROL TECHNICIAN Temperature 36.4 C (97.5 F) 07/30/2024 8:10 AM INSTRUMENT AND CONTROL TECHNICIAN Respiratory Rate 18 07/30/2024 8:10 AM INSTRUMENT AND CONTROL TECHNICIAN Oxygen Saturation 97% 07/30/2024 8:10 AM INSTRUMENT AND CONTROL TECHNICIAN Inhaled Oxygen Concentration - - Weight 77.1 kg (170 lb) 07/30/2024 8:10 AM INSTRUMENT AND CONTROL TECHNICIAN Height 170.2 cm (5' 7 ) 07/30/2024 8:10 AM INSTRUMENT AND CONTROL TECHNICIAN Body Mass Index 26.63 07/30/2024 8:10 AM INSTRUMENT AND CONTROL TECHNICIAN Plan of Treatment Upcoming Encounters Date Type Department Care Team (Late st Contact Info) Description 02/11/2025 8:00 AM CDT Office Visit [facility] Family Medicine - [place] [address] [facility] [address] [place] [address] Radha Goldstein NP [address] [place] [address] Health Maintenance Due Date Last Done Comments Cervical Cancer Screening Pap Smear (Age 30 to 64) Every 3 Years 1982 Pneumococcal Vaccine: Pediatrics (0 to 5 Years) and At-Risk Patients (6 to 49 Years) (1 of 2 - PCV) 2001 Cervical Cancer Screening Pap with HPV Testing (Age 30 to 64) Every 5 Years 2012 Cervical Cancer Screening with HPV 2012 Hepatitis B Vaccines (2 of 3 - 19+ 3-dose series) 04/12/2020 03/15/2020, 03/15/2020 COVID-19 Vaccine (3 - 2023- season) 2024 09/28/2020, 08/31/2020 PHQ-2 (Physician [place]) 08/25/2024 07/30/2024 Annual Physical 07/30/2025 07/30/2024, 04/26, 05/17/2022, Additional history exists Mammogram Screening 09/14/2026 09/14/2024, DTaP, Tdap and Td Vaccines (2 - Td or Tdap) 04/25/2031 04/25/2021 Hepatitis C Completed 09/27/2022 HPV Vaccines Aged Out No longer eligi ble based on patient's age to complete this topic Meningococcal B Vaccine Aged Out No l onger eligible based on patient's age to complete this topic Meningococcal Vaccine Aged Out No dennis swathi eligible based on patient's age to complete this topic RSV Immunizations Under 20 Months Aged Out No longer eligible based on patient's age to complete this topic Procedures Procedure Name Priority Date/Time Associated Diagnosis Comments MG DIAG W CHELLY BILAT DIGI GIOVANNA 09/14/2024 8:47 AM INSTRUMENT AND CONTROL TECHNICIAN Abnormal mammogram of both breasts HEPATITIS C ANTIBODY Routine 09/27/2022 9:03 AM INSTRUMENT AND CONTROL TECHNICIAN Need for hepatitis C screening test from Last 3 Months or Most Recently Relevant to Health Maintenance Results * MG DIAG W CHELLY BILAT DIGI (09/14/2024 8:47 AM INSTRUMENT AND CONTROL TECHNICIAN) Anatomical Region Laterality Modality Breast Bilateral Mammography 09/14/2024 8:55 AM INSTRUMENT AND CONTROL TECHNICIAN Impressions 09/14/2024 8:57 AM INSTRUMENT AND CONTROL TECHNICIAN =====IMPRESSION:===== No mammographic findings suggestive of malignancy ASSESSMENT: ACR BI-RADS 2 - BENIGN FINDING(S) Recommendation: 1: Routine Screening Bilateral COMMENTS: Ordered By: RADHA GOLDSTEIN Interpreted By: Mayank Pedersen, 09/14/2024 8:55 AM Narrative 09/14/2024 8:57 AM INSTRUMENT AND CONTROL TECHNICIAN [facility] [address] [place] [address] EXAMINATION: Digital bilateral diagnostic mammogram with 3-D tomography EXAM DATE/TIME: 09/14/2024 8:19 AM REASON FOR EXAM: breast asymmetries on screening mammogram COMPARISON: Baseline screening 08/23/2024 TECHNIQUE: Digital diagnostic mammography of both breasts was performed in addition to 3-D Tomosynthesis technique. This study was read with the assistance of a computer-aided detection system. TISSUE DENSITY: The breasts are heterogeneously dense, which may obscure small masses. FINDINGS: Right upper breast asymmetry was also spot compression. This area appears normal on the true lateral images as well. Compatible with normal overlapping breast tissue, summation artifact. Left upper breast asymmetry is also spot compression. Left retroareolar CC view asymmetry resolves with spot compression. No suspicious findings in the left breast. Radha Goldstein NP MAMMO Final Res ult * HEPATITIS C AB ([facility] ONLY) (09/27/2022 9:03 AM INSTRUMENT AND CONTROL TECHNICIAN) HEPATITIS C AB NON-REACTI VE NON-REACT ANA 09/27/2022 4:43 PM INSTRUMENT AND CONTROL TECHNICIAN [facility] Comment: ANTIBODIES TO HCV NOT DETECTED. DOES NOT EXCLUDE THE POSSIBILITY OF EXPOSURE TO HCV. 09/27/2022 9:03 AM INSTRUMENT AND CONTROL TECHNICIAN Radha Goldstein NP LABORATORY Final Res ult [facility] [address] [place] [address], [id number] from Last 3 Months or Most Recently Relevant to Health Maintenance Insurance [facility] Care Teams Electric Needle Specialist Relationship Specialty Start Date End Date Radha Goldstein NP [address] [place] [address] PCP - General NURSE PRACTITIONER 07/13/21
--- OUTSIDE RECORDS SUMMARY | 2024-12-25 15:42 | XMS_ITS | Encounter Summary ---
Author Organization [facility] Address [address] [place] [address] Care Team Providers Care Armed Custom Protection Officer Name Role Phone Radha Goldstein NP Primary Care Provider [phone] Encounter Details Date Type Department Care Team (Late st Contact Info) Description 07/28/2022 [employer] Message Enc [facility] Family Medicine - [place] [address] [facility] [address] [place] [phone] Radha Goldstein, BHARGAV [address] [place], [place] [phone] Blood work Social History Tobacco Use Types Packs/Day Years [...] Sex Assigned at Female 09/14/2024 8:12 AM SLAB DEPILER OPERATOR Legal Sex Female 7:25 PM CDT Gender Identity Not on file Sexual Orientation Not on file documented as of this encounter Progress Notes * Areli Jerez - 07/29/2022 2:19 PM CST Called patient and scheduled for 08/23 DEPILER OPERATOR * Demetria Cameron MA - 07/29/2022 1:33 PM CST Can you schedule her an appointment in [place]? DEPILER OPERATOR documented in this encounter Plan of Treatment Upcoming Encounters Date Type Department Care Team (Late st Contact Info) Description 02/11/2025 8:00 AM CDT Office Visit [facility] Family Medicine - [place] [address] [facility] [address] [place] [address] Radha Goldstein NP [address] [place], [place] [address] documented as of this encounter Visit Diagnoses Not on filedocumented in this encounter Additional Health Concerns Assessment Noted Time PHQ-9 Depression Total Score: 12 022 9:04 AM CDT documented as of this encounter Care Teams Armed Custom Protection Officer Relationship Specialty Start Date End Date Radha Goldstein NP [address] [place] [address] PCP - General NURSE PRACTITIONER 07/13/21 documented as of this encounter
--- OUTSIDE RECORDS SUMMARY | 2024-12-25 15:42 | XMS_ITS | Clinical Summary ---
Author Organization [facility] Address [address] [facility] [place] [address] Care Team Providers Care Clearance Rep Name Role Phone Markus Olson MD Primary Care Provider [phone] Source Comments [facility],non-owned Affiliates and Associated Physician Practices is amultiple site organization consisting of ambulatory clinics and hospital sitesin [place], [place], [place] and [place]. This disclosure is being madepursuant to the Care Everywhere program and may not contain all information available regarding this patient. Last updated 18.[facility] Allergies No known active allergies Medications * Be aware that medications may not be up to date on this document. Alwaysverify current medications with the patient. No known medications Social History Tobacco Use Types Packs/Day Years Used Date Smoking Tobacco: Former Smokeless Tobacco: Never Comments Unknown Sex and Gender Information Value Date Recorded Sex Assigned at Not on file Legal Sex Female 9:42 PM BOAT OUTFITTING SUPERVISOR Gender Identity Not on file Sexual Orientation Not on file Last Filed Vital Signs Vital Sign Reading Time Taken Comments Blood Pressure 100/70 10/20/2017 10:53 AM BOAT OUTFITTING SUPERVISOR Pulse 111 10/20/2017 10:53 AM BOAT OUTFITTING SUPERVISOR Temperature 36.8 C (98.3 F) 10/20/2017 10:53 AM BOAT OUTFITTING SUPERVISOR Respiratory Rate 16 10/20/2017 10:53 AM BOAT OUTFITTING SUPERVISOR Oxygen Saturation 95% 10/20/2017 10:53 AM BOAT OUTFITTING SUPERVISOR Inhaled Oxygen Concentration - - Weight 86.2 kg (190 lb) 10/20/2017 10:53 AM BOAT OUTFITTING SUPERVISOR Height 166.4 cm (5' 5.5 ) 10/20/2017 10:53 AM CS T Body Mass Index 31.14 10/20/2017 10:53 AM BOAT OUTFITTING SUPERVISOR Plan of Treatment Health Maintenance Due Date Last Done Comments LIPID TESTING 1982 MAMMOGRAM 1982 PAP SMEAR 1982 HIV SCREENING 1997 HEPATITIS C SCREENING 05/21/2000 DTAP/TDAP/TD VACCINES (1 - Tdap) 2001 HEPATITIS B VACCINE (1 of 3 - 19+ 3-dose series) 2001 COVID-19 VACCINE (1 - 2023-2 5 season) 2024 DEPRESSION SCREENING 08/25/2024 INFLUENZA VACCINE (Season Ended) 2025 ZOSTER VACCINE (1 of 2) 2032 HIB VACCINE Aged Out No longer eligi ble based on patient's age to complete this topic HPV VACCINE Aged Out No longer eligi ble based on patient's age to complete this topic MENINGOCOCCAL (Group B) VACC INE SHARED DECISION-MAKING Aged Out No longer eligibl e based on patient's age to complete this topic MENINGOCOCCAL GROUPS A/C/Y/W VACCINE Aged Out No longer eligible b ased on patient's age to complete this topic PNEUMOCOCCAL VACCINE Aged Out No long er eligible based on patient's age to complete this topic Insurance ANTHEM Member Subscriber Plan / Payer (Ef fective for All Dates) Name:Genoveva West Relation to Subscriber:Self Name:Genoveva West Payer ID:[id number] (NAIC) Type:PPO Address: [place] [phone] ANTHEM Member Subscriber Plan / Payer (Ef fective for All Dates) Name:Genoveva West Relation to Subscriber:Self Name:Genoveva West Payer ID:[id number] (NAIC) Type:PPO Address: [place] [phone] Care Teams Clearance Rep Relationship Specialty Start Date End Date Markus Olson MD PCP - General Family Medicine 10/20/17
--- OUTSIDE RECORDS SUMMARY | 2024-12-25 15:42 | XMS_ITS | Encounter Summary ---
Author Organization [facility] Address [address] [place] [address] Care Team Providers Care Civil Designer Name Role Phone Radha Goldstein NP Primary Care Provider [phone] Encounter Details Date Type Department Care Team (Late Contact Info) Description 01/02/2024 [employer] Message Enc [address] [phone] [facility] Provider Breast Screening Social History Tobacco Use Types Packs/Day Years [...] Sex Assigned at Female 09/14/2024 8:12 AM BOBBIN PAINTER Legal Sex Female 7:25 PM CDT Gender Identity Not on file Sexual Orientation Not on file documented as of this encounter Plan of Treatment Upcoming Encounters Date Type Department Care Team (Late Contact Info) Description 02/11/2025 8:00 AM CDT Office Visit [facility] [address] [phone] Radha Goldstein NP [address] [place] [address] documented as of this encounter Visit Diagnoses Not on filedocumented in this encounter Additional Health Concerns Assessment Noted Time PHQ-9 Depression Total Score: 14 023 3:32 PM CDT documented as of this encounter Care Teams Civil Designer Relationship Specialty Start Date End Date Radha Goldstein NP [address] [place] [address] PCP - General NURSE PRACTITIONER 07/13/21 documented as of this encounter
--- OUTSIDE RECORDS SUMMARY | 2024-12-25 15:42 | XMS_ITS | Encounter Summary ---
Author Organization [facility] Address [address] [place] [address] Care Team Providers Care Data Science And Iot Manager Name Role Phone Radha Goldstein NP Primary Care Provider [phone] Encounter Details Date Type Department Care Team (Late Contact Info) Description 05/11/2024 MyChart Message Enc [facility] [address] [place] [phone] Radha Goldstein NP [address] [phone] Adderall Social History Tobacco Use Types Packs/Day Years [...] Sex Assigned at Female 09/14/2024 8:12 AM ASPHALT PAVING SUPERVISOR Legal Sex Female 7:25 PM CDT Gender Identity Not on file Sexual Orientation Not on file documented as of this encounter Plan of Treatment Upcoming Encounters Date Type Department Care Team (Late st Contact Info) Description 02/11/2025 8:00 AM CDT Office Visit [facility] [address] [facility] [address] [place] [phone] Radha Goldstein NP [address] [place] [address] documented as of this encounter Visit Diagnoses Not on filedocumented in this encounter Additional Health Concerns Assessment Noted Time PHQ-9 Depression Total Score: 14 023 3:32 PM CDT documented as of this encounter Care Teams Data Science And Iot Manager Relationship Specialty Start Date End Date Radha Goldstein NP [address] [place] [address] PCP - General NURSE PRACTITIONER 07/13/21 documented as of this encounter
--- OUTSIDE RECORDS SUMMARY | 2024-12-25 15:42 | XMS_ITS | Encounter Summary ---
Author Organization [facility] Address [address] [place] [address] Care Team Providers Care Private Wealth Advisor Name Role Phone [employer] Pride RICE MILLING SUPERVISOR Primary Care Provider Radha Chan RICE MILLING SUPERVISOR Primary Care Provider [phone] Encounter Details Date Type Department Care Team (Late st Contact Info) Description 04/26/[address] [employer] [facility] [address] [place] [address] Sunshine Pride, RICE MILLING SUPERVISOR Test Results Social History Tobacco Use Types Packs/Day Years [...] Sex Assigned at Female 09/14/2024 8:12 AM CARDIOLOGY PHYSICIAN ASSISTANT Legal Sex Female 7:25 PM CDT Gender [...] Description 02/11/2025 8:00 AM CDT Office Visit [facility] [place] [address] [facility] [address] [place] [address] Radha Goldstein NP [address] [place] [phone] documented as of this encounter Visit Diagnoses Not on filedocumented in this encounter Additional Health Concerns Infection Onset Date Last Indicated Resolved Time COVID-19 Rule Out 04/25/2021 04/25/2021 04/27/2021 10:31 AM CDT Assessment Noted Time PHQ-9 Depression Total Score: 5 04/25/20 11:32 AM CDT documented as of this encounter Care Teams Private Wealth Advisor Relationship Specialty Start Date End Date Sunshine Pride NP PCP - General NURSE PRACTITIONER 04/25/21 07/12/21 Radha Goldstein, BHARGAV [address] [place] [address] PCP - General NURSE PRACTITIONER 07/13/21 documented as of this encounter
--- OUTSIDE RECORDS SUMMARY | 2024-12-25 15:42 | XMS_ITS | Encounter Summary ---
Author Organization [facility] Address [address] [place] [address] Care Team Providers Care Auto Rental Clerk Name Role Phone Radha Goldstein NP Primary Care Provider [phone] Encounter Details Date Type Department Care Team (Late Contact Info) Description 08/29/2023 MyChart Message Enc [facility] [address] [phone] Radha Goldstein NP [address] [phone] Refills Social History Tobacco Use Types Packs/Day Years [...] Sex Assigned at Female 09/14/2024 8:12 AM EXHAUST AND MUFFLER FITTER Legal Sex Female 7:25 PM CDT Gender Identity Not on file Sexual Orientation Not on file documented as of this encounter Plan of Treatment Upcoming Encounters Date Type Department Care Team (Late Contact Info) Description 02/11/2025 8:00 AM CDT Office Visit [facility] [address] [phone] Radha Goldstein NP [address] [place] [address] documented as of this encounter Visit Diagnoses Not on filedocumented in this encounter Additional Health Concerns Assessment Noted Time PHQ-9 Depression Total Score: 14 023 3:32 PM CDT documented as of this encounter Care Teams Auto Rental Clerk Relationship Specialty Start Date End Date Radha Goldstein NP [address] [place] [address] PCP - General NURSE PRACTITIONER 07/13/21 documented as of this encounter
--- OUTSIDE RECORDS SUMMARY | 2024-12-25 15:42 | XMS_ITS | Encounter Summary ---
Author Organization [facility] Address [address] [place] [address] Care Team Providers Care Lead Tank Mechanic Name Role Phone Radha Goldstein TABULATING CLERK Primary Care Provider [phone] Encounter Details Date Type Department Care Team (Late Contact Info) Description 10/03/[address] Message Enc [address] [phone] [facility] Provider follow up Social History Tobacco Use Types Packs/Day Years [...] Sex Assigned at Female 09/14/2024 8:12 AM SEALER OPERATOR Legal Sex Female 7:25 PM CDT Gender Identity Not on file Sexual Orientation Not on file documented as of this encounter Plan of Treatment Upcoming Encounters Date Type Department Care Team (Late Contact Info) Description 02/11/2025 8:00 AM CDT Office Visit [facility] [address] [phone] Radha Goldstein NP [address] [place] [address] documented as of this encounter Visit Diagnoses Not on filedocumented in this encounter Additional Health Concerns Assessment Noted Time PHQ-9 Depression Total Score: 14 023 3:32 PM CDT documented as of this encounter Care Teams Lead Tank Mechanic Relationship Specialty Start Date End Date Radha Goldstein NP [address] [place] [address] PCP - General NURSE PRACTITIONER 07/13/21 documented as of this encounter
--- OUTSIDE RECORDS SUMMARY | 2024-12-25 15:42 | XMS_ITS | Encounter Summary ---
Author Organization [facility] Address [address] [place] [address] Care Team Providers Care Parasitologist Name Role Phone Radha Goldstein NP Primary Care Provider +1 -[phone] Encounter Details Date Type Department Care Team (Late st Contact Info) Description 10/25/2024 ncyclo Message Enc [facility] Medical Group Family Medicine - [place] [address] [facility] [address] [place] [address] [phone] Radha Goldstein NP [address] [place], [place] [phone] Elizabeth Choi Social History Tobacco Use Types Packs/Day Years [...] Sex Assigned at Female 09/14/2024 8:12 AM PARENT COACH Legal Sex Female 7:25 PM CDT Gender Identity Not on file Sexual Orientation Not on file documented as of this encounter Progress Notes * Radha Goldstein NP - 10/25/2024 11:20 AM CST Let pt's mom know the reason. If there was ever a change if condition I don't feel comfortable providing a note without doing an initial examination. NT COACH * Radha Goldstein NP - 10/25/2024 10:35 AM CST I will be able to provide a note below but I will need to see her first for an initial examination. NT COACH documented in this encounter Plan of Treatment Upcoming Encounters Date Type Department Care Team (Late st Contact Info) Description 02/11/2025 8:00 AM CDT Office Visit [facility] Medical [facility] Family Medicine - [place] [address] [facility] [address] [place] [address] Radha Goldstein NP [address] [place], [place] [id number] documented as of this encounter Visit Diagnoses Not on filedocumented in this encounter Additional Health Concerns Assessment Noted Time PHQ-9 Depression Total Score: 9 07/30/20 24 8:14 AM PARENT COACH documented as of this encounter Care Teams Parasitologist Relationship Specialty Start Date End Date Radha Goldstein NP [address] [place] [address] PCP - General NURSE PRACTITIONER 07/13/21 documented as of this encounter
== END 2024-12-25 02:34 | disposition home or self-care (01) ==
PROVIDERS: Emergency Provider Physician Assistant; PCP Nurse Practitioner
DX: S50.02XA Contusion of left elbow, initial encounter (principal); Z87.891 Personal history of nicotine dependence; Z90.49 Acquired absence of other specified parts of digestive tract; W07.XXXA Fall from chair, initial encounter
CPT/HCPCS: 73080; 73090; 99284

== ENCOUNTER 2025-02-09 17:13 | Outpatient (CLI) | payer BC, SELFPAY ==
--- OUTSIDE RECORDS SUMMARY | 2025-02-09 17:49 | XMS_ITS | Encounter Summary ---
Author Organization [facility] Address [facility] [place] [address] Care Team Providers Care Frame Runner Name Role Phone Radha Goldstein NP Primary Care Provider [phone] [phone] Encounter Details Date Type Department Care Team (Late st Contact Info) Description 02/19/2023 Medalogixhart Message [facility] - [facility] [address] [place] [address] [facility] Provider Air Quality Message Social History [...] Sex Assigned at Female 09/14/2024 8:12 AM PULMONARY PHYSICAL THERAPIST Legal Sex Female 7:25 PM CDT Gender Identity Not on file Sexual Orientation Not on file documented as of this encounter Plan of Treatment Not on file documented as of this encounter Visit Diagnoses Not on filedocumented in this encounter Additional Health Concerns Assessment Noted Time PHQ-9 Depression Total Score: 12 022 9:04 AM CDT documented as of this encounter Care Teams Frame Runner Relationship Specialty Start Date End Date Radha Goldstein NP [address] [place] [address] PCP - General NURSE PRACTITIONER 07/13/21 documented as of this encounter
--- OUTSIDE RECORDS SUMMARY | 2025-02-09 17:49 | XMS_ITS | Encounter Summary ---
Author Organization [facility] Address [address] [place] [address] Care Team Providers Care Game Technician Name Role Phone Radha Goldstein NP Primary Care Provider [phone] [phone] Encounter Details Date Type Department Care Team (Late st Contact Info) Description 06/06/2023 Nopsec Message Enc [facility] Medical Group Family Medicine - [place] [address] [facility] [address] [place] [address] [phone] Radha Goldstein NP [address] [place] [address] [place], [place] [address] lab results Social History Tobacco Use Types [...] Sex Assigned at Female 09/14/2024 8:12 AM SAMPLE WORKER Legal Sex Female 7:25 PM CDT Gender Identity Not on file Sexual Orientation Not on file documented as of this encounter Plan of Treatment Not on file documented as of this encounter Visit Diagnoses Not on filedocumented in this encounter Additional Health Concerns Assessment Noted Time PHQ-9 Depression Total Score: 14 023 3:32 PM CDT documented as of this encounter Care Teams Game Technician Relationship Specialty Start Date End Date Radha Goldstein NP [address] [place] [address] PCP - General NURSE PRACTITIONER 07/13/21 documented as of this encounter
--- OUTSIDE RECORDS SUMMARY | 2025-02-09 17:49 | XMS_ITS | Encounter Summary ---
Author Organization [facility] Address [address] [place] [address] Care Team Providers Care Nonprofit Director Name Role Phone Radha Goldstein NP Primary Care Provider +1 [phone] Encounter Details Date Type Department Care Team (Late st Contact Info) Description 01/27/2025 [email or web address] Message Enc [facility] Medical Group Family Medicine - [place] [address] [facility] [address] [place] [phone] Radha Goldstein NP [address] [place] [address] [place], [place] [address] Cold sore Social History Tobacco Use Types Packs/Day Years [...] Sex Assigned at Female 09/14/2024 8:12 AM PLANNER/SCHEDULER Legal Sex Female 7:25 PM CDT Gender Identity Not on file Sexual Orientation Not on file documented as of this encounter Plan of Treatment Not on file documented as of this encounter Visit Diagnoses Not on filedocumented in this encounter Additional Health Concerns Assessment Noted Time PHQ-9 Depression Total Score: 9 07/30/20 24 8:14 AM PLANNER/SCHEDULER documented as of this encounter Care Teams Nonprofit Director Relationship Specialty Start Date End Date Radha Goldstein NP [address] [place] [address] [place] [address] PCP - General NURSE PRACTITIONER 07/13/21 documented as of this encounter
--- OUTSIDE RECORDS SUMMARY | 2025-02-09 17:49 | XMS_ITS | Encounter Summary ---
Author Organization [facility] Address [address] [place] [address] Care Team Providers Care Dietitian Research Name Role Phone Sunshine Pride MARINE ENGINEER Primary Care Provider Radha Chan MARINE ENGINEER Primary Care Provider +1 [phone] Encounter Details Date Type Department Care Team (Latest Contact Info) Description 05/03/2021 [employer] Message Enc [facility] Medical Group Multispecialty Care - [address] [place] [address] Sunshine Pride, MARINE ENGINEER RE: Medication Questions Social History Tobacco Use [...] Sex Assigned at Female 09/14/2024 8:12 AM CLINICAL UNIT EDUCATOR Legal Sex Female 7:25 PM CDT Gender [...] Noted Time PHQ-9 Depression Total Score: 5 09/01/20 21 11:32 AM CDT documented as of this encounter Care Teams Dietitian Research Relationship Specialty Start Date End Date Sunshine Pride NP PCP - General NURSE PRACTITIONER 04/25/21 07/12/21 Radha Goldstein NP [address] [place] [address] PCP - General NURSE PRACTITIONER 07/13/21 documented as of this encounter
--- OUTSIDE RECORDS SUMMARY | 2025-02-09 17:49 | XMS_ITS | Encounter Summary ---
Author Organization [facility] Address [address] [place] [address] Care Team Providers Care Electronic Equipment Repairmen Name Role Phone Radha Goldstein NP Primary Care Provider [phone] [phone] Encounter Details Date Type Department Care Team (Late st Contact Info) Description 08/09/2024 SOURCE TECHNOLOGIES Message Enc [facility] Medical Group Family Medicine - [place] [address] [facility] [address] [place] [address] [phone] Radha Goldstein NP [address] [place] [address] [place], [place] [address] Spider bite? Social History Tobacco Use Types [...] Sex Assigned at Female 09/14/2024 8:12 AM EXTERIOR WORK HELPER Legal Sex Female 7:25 PM CDT Gender Identity Not on file Sexual Orientation Not on file documented as of this encounter Progress Notes * Radha Goldstein NP - 08/09/2024 8:57 AM CST Relationship Analytics message sent about a new issue issue so would need office visit for eval and recommendations. RIOR WORK HELPER documented in this encounter Plan of Treatment Not on file documented as of this encounter Visit Diagnoses Not on filedocumented in this encounter Additional Health Concerns Assessment Noted Time PHQ-9 Depression Total Score: 9 07/30/20 24 8:14 AM EXTERIOR WORK HELPER documented as of this encounter Care Teams Electronic Equipment Repairmen Relationship Specialty Start Date End Date Radha Goldstein NP [address] [place] [address] PCP - General NURSE PRACTITIONER 07/13/21 documented as of this encounter
--- OUTSIDE RECORDS SUMMARY | 2025-02-09 17:49 | XMS_ITS | Encounter Summary ---
Author Organization [facility] Address [address] [place] [address] Care Team Providers Care Tumbler Machine Operator Name Role Phone Sunshine Pride REPRESENTATIVE PERSONAL SERVICE Primary Care Provider Radha Chan REPRESENTATIVE PERSONAL SERVICE Primary Care Provider [phone] [phone] Encounter Details Date Type Department Care Team (Late st Contact Info) Description 04/26/2021 ClassPass Message Enc [facility] Medical Group Multispecialty Care [address] [place] [address] Sunshine Pride, REPRESENTATIVE PERSONAL SERVICE Test Results Social History Tobacco Use Types [...] Sex Assigned at Female 09/14/2024 8:12 AM UX RESEARCH ASSOCIATE Legal Sex Female 7:25 PM CDT Gender [...] documented as of this encounter Care Teams Tumbler Machine Operator Relationship Specialty Start Date End Date Sunshine Pride NP PCP - General NURSE PRACTITIONER 04/25/21 07/12/21 Radha Goldstein NP [address] [place] [address] PCP - General NURSE PRACTITIONER 07/13/21 documented as of this encounter
--- OUTSIDE RECORDS SUMMARY | 2025-02-09 17:49 | XMS_ITS | Clinical Summary ---
Author Organization [facility] Address [address] [facility] tien [place] [address] Care Team Providers Care Python Java Developer Name Role Phone Miscellaneous, Not In File Primary Care Provider Unavailable Allergies No known active allergies Medications docusate sodium (COLACE) 100 mg capsule take 1 capsule (100MG) by oral route every day at bedtime as needed 30 0 10/01/19 17 Active Additional Information Patient not taking.Reported on 01/05/2025 methylPREDNISolone (MEDROL DOSEPACK) 4 mg DosepackIndications :Exacerbation of asthma, unspecified asthma severity, unspecified whether persistent Take 6 tabs on day 1, reduce dose by 1 daily until prescription is complete. 1 packet 02/23/20 24 Active Additional Information Patient not taking.Reported on 01/05/2025 benzonatate (TESSALON) 200 mg capsuleIndications: Acute nasopharyngitis Take 1 capsule (200 mg total) by mouth 3 (three) times a day as needed for cough keep tessalon out of reach of children, especially children under the age of 10, due to possible serious risk such as if ingested by children under the age of 10. 30 capsule 02/23/20 24 Active Additional Information Patient not taking.Reported on 01/05/2025 levonorgestreL (MIRENA) IUD 1 each by intrauterine route once 10/26/19 22 Active dextroamphetamine-a mphetamine XR (ADDERALL XR) 20 mg 24 hr capsule Take 1 capsule (20 mg total) by mouth lathe scalper operator before breakfast 12/08/19 25 Active buPROPion SR (WELLBUTRIN SR) 150 mg 12 hr tablet Take 1 tablet (150 mg total) by mouth daily Active albuterol HFA (PROVENTIL HFA,VENTOLIN HFA,PROAIR HFA) 90 mcg/actuation inhaler Inhale 2 puffs every 6 (six) hours as needed 08/25/19 12 Active acetaminophen (TYLENOL) 325 mg tablet Take 1 tablet (325 mg total) by mouth every 4 (four) hours as needed Active Active Problems No known active problems Encounters Date Type Department Care Team Description 01/27/2025 8:30 AM CDT Office Visit [facility] Medical Group Sports Medicine and Primary Care at [address] [address] Samuel Mendoza DO Left elbow pain (Primary Dx) 01/13/2025 11:00 AM CDT Ancillary Procedure [facility] Medical Group Imaging at [address] [address] Left elbow pain 01/13/2025 10:55 AM CDT Ancillary Procedure [facility] Medical Group Imaging at [address] [address] Left elbow pain 01/13/2025 10:15 AM CDT Office Visit [facility] Sports Medicine and Primary Care at [address] [address] Samuel Mendoza DO Left elbow pain (Primary Dx) 01/05/2025 2:30 PM CDT Office Visit [facility] Sports Medicine and Primary Care at [address] [address] Samuel Mendoza DO Left elbow pain (Primary Dx) from Last 3 Months Surgical History Surgery Date Site/Laterality Comments CHOLECYSTECTOMY Cholecystectomy KNEE ARTHROSCOPY Arthroscopy knee Medical History Medical History Date Comments Asthma Asthma; Comments : JNS 09/23/2016 - Hx Other Medical Headache, migra ine Family History Medical History Relation Name Comments No Known Problems Father Relation Name Status Comments Brother Alive Father Alive Mother Sister Alive Social History Tobacco Use Types Packs/Day Years Used Date Smoking Tobacco: Never Smokeless Tobacco: Never Tobacco Cessation:Counseling Given: No AUDIT-C Answer Date Recorded Q1: How often do you have a drink containing alc ohol? 2-4 times a month 01/05/2025 Q2: How many drinks containi ng alcohol do you have on a typical day when you are drinking? 1 or 2 01/05/2025 Q3: How often do you have si x or more drinks on one occasion? Less than monthly 01/05/2025 Comments Unknown Sex and Gender Information Value Date Recorded Sex Assigned at Not on file Legal Sex Female 4:22 AM PUSHER RUNNER Gender Identity Not on file Sexual Orientation Not on file Obstetrics History Last Filed Vital Signs Vital Sign Reading Time Taken Comments Blood Pressure 128/85 01/27/2025 8:35 AM CDT Pulse 74 01/27/2025 8:35 AM CDT Temperature 37.3 C (99.2 F) 02/21/2024 7:26 PM CDT Respiratory Rate 18 01/27/2025 8:35 AM CDT Oxygen Saturation 98% 02/21/2024 7:26 PM CDT Inhaled Oxygen Concentration - - Weight 76.2 kg (168 lb) 01/27/2025 8:35 AM CDT Height 167.6 cm (5' 6) 01/27/2025 8:35 AM CDT Body Mass Index 27.12 01/27/2025 8:35 AM CDT Plan of Treatment Health Maintenance Due Date Last Done Comments Cervical Cancer Screening 1982 Depression Screening 1982 Hepatitis C Screening 1982 Varicella Vaccines (1 of 2 - 13+ 2-dose series) 1995 Regular Well Visit/Exam 18-64 2000 Pneumococcal vaccine <65 (1 of 2 - PCV) 2001 Covid-19 Vaccine ( - season) 2024 09/28/2020, 08/31/2020 Influenza Vaccine (Season Ended) 2025 05/17/2022 Breast Cancer Screening-Mammogram 09/14/2025 09/14/2024, 09/14/2024, 08/23/2024, Additional history exists DTaP/Tdap/Td Vaccine (2 - Td or Tdap) 04/25/2031 04/25/2021 Hepatitis B Screening Completed 03/15/2020 HPV Vaccines Aged Out No longer eligi ble based on patient's age to complete this topic Procedures Procedure Name Priority Date/Time Associated Diagnosis Comments XR RADIUS ULNA LEFT 2 VIEWS Schedule Routine, Read Routine (OP Routine) 01/13/2025 10:55 AM CDT Left elbow pain XR ELBOW LEFT 3 OR MORE VIEWS Schedule Routine, Read Routine (OP Routine) 01/13/2025 10:55 AM CDT Left elbow pain from Last 3 Months Results * XR Radius Ulna Left 2 Views (01/13/2025 10:55 AM CDT) Anatomical Region Laterality Modality Upper Extremities, Forearm Left Digit al Radiography 01/13/2025 1:40 PM CDT Narrative 01/13/2025 1:42 PM CDT EXAM DESCRIPTION: XR ELBOW LEFT 3 OR MORE VIEWS; XR RADIUS ULNA LEFT 2 VIEWS REASON FOR STUDY: Left elbow pain Left forearm pain Pain to elbow and forearm after fall on 12/25. Recent xrays negative. F/u. FINDINGS: Three views left elbow and two views left forearm submitted without comparison. The elbow joint spaces are normal. Alignment is normal. No evidence of an elbow effusion. No acute fracture. Mild olecranon bursitis. Mild dorsal proximal forearm soft tissue swelling. IMPRESSION: No acute fracture. Mild left olecranon bursitis. Mild dorsal proximal left forearm soft tissue swelling. THIS IS AN ELECTRONICALLY VERIFIED FINAL REPORT 01/13/2025 1:42 PM - Electronically signed by Samuel Garcia M.D. MF T: Report ID: [id number] Reading Location: [id number] Procedure Note Samuel Garcia MD - 01/13/2025 EXAM DESCRIPTION: XR ELBOW LEFT 3 OR MORE VIEWS; XR RADIUS ULNA LEFT 2 VIEWS REASON FOR STUDY: Left elbow pain Left forearm pain Pain to elbow and forearm after fall on 12/25. Recent xrays negative. F/u. FINDINGS: Three views left elbow and two views left forearm submittedwithout comparison. The elbow joint spaces are normal. Alignment is normal. No evidence ofan elbow effusion. No acute fracture. Mild olecranon bursitis. Mild dorsal proximal forearm soft tissue swelling. IMPRESSION: No acute fracture. Mild left olecranon bursitis. Mild dorsal proximal left forearm soft tissue swelling. THIS IS AN ELECTRONICALLY VERIFIED FINAL REPORT 01/13/2025 1:42 PM - Electronically signed by Samuel Garcia M.D. T: Report ID: [id number] Reading Location: [id number] Samuel Deleon Kelly DO IMG XR PROCEDURES Nara l Result * XR Elbow Left 3 or More Views (01/13/2025 10:55 AM CDT) Anatomical Region Laterality Modality Upper Extremities, Elbow Left Digital Radiography 01/13/2025 1:40 PM CDT Narrative 01/13/2025 1:42 PM CDT EXAM DESCRIPTION: XR ELBOW LEFT 3 OR MORE VIEWS; XR RADIUS ULNA LEFT 2 VIEWS REASON FOR STUDY: Left elbow pain Left forearm pain Pain to elbow and forearm after fall on 12/25. Recent xrays negative. F/u. FINDINGS: Three views left elbow and two views left forearm submitted without comparison. The elbow joint spaces are normal. Alignment is normal. No evidence of an elbow effusion. No acute fracture. Mild olecranon bursitis. Mild dorsal proximal forearm soft tissue swelling. IMPRESSION: No acute fracture. Mild left olecranon bursitis. Mild dorsal proximal left forearm soft tissue swelling. THIS IS AN ELECTRONICALLY VERIFIED FINAL REPORT 01/13/2025 1:42 PM - Electronically signed by Samuel Garcia M.D. T: Report ID: [id number] Reading Location: [id number] Procedure Note Samuel Garcia MD - 01/13/2025 EXAM DESCRIPTION: XR ELBOW LEFT 3 OR MORE VIEWS; XR RADIUS ULNA LEFT 2 VIEWS REASON FOR STUDY: Left elbow pain Left forearm pain Pain to elbow and forearm after fall on 12/25. Recent xrays negative. F/u. FINDINGS: Three views left elbow and two views left forearm submittedwithout comparison. The elbow joint spaces are normal. Alignment is normal. No evidence ofan elbow effusion. No acute fracture. Mild olecranon bursitis. Mild dorsal proximal forearm soft tissue swelling. IMPRESSION: No acute fracture. Mild left olecranon bursitis. Mild dorsal proximal left forearm soft tissue swelling. THIS IS AN ELECTRONICALLY VERIFIED FINAL REPORT 01/13/2025 1:42 PM - Electronically signed by Samuel Garcia M.D. T: Report ID: [id number] Reading Location: [place] [address] Samuel Mendoza DO IMG XR PROCEDURES Nara l Result from Last 3 Months Insurance [employer] [place] Care Teams Python Java Developer Relationship Specialty Start Date End Date Miscellaneous, Not In File PCP - General 10/09/16
--- OUTSIDE RECORDS SUMMARY | 2025-02-09 17:49 | XMS_ITS | Encounter Summary ---
Author Organization [facility] Address [address] [place] [address] Care Team Providers Care Human Resources Technician Name Role Phone Radha Goldstein NP Primary Care Provider [phone] [phone] Encounter Details Date Type Department Care Team (Late st Contact Info) Description 07/28/2022 HireAHelper Message Enc [facility] Medical Group Family Medicine - [place] [address] [facility] [address] [place] [address] [phone] Radha Goldstein, BHARGAV [address] [place] [address] [place], [place] [phone] Blood work Social History Tobacco Use Types [...] Sex Assigned at Female 09/14/2024 8:12 AM MANAGER TRACK Legal Sex Female 7:25 PM CDT Gender Identity Not on file Sexual Orientation Not on file documented as of this encounter Progress Notes * Areli Jerez - 07/29/2022 2:19 PM CST Called patient and scheduled for 08/23 GER TRACK * Demetria Cameron MA - 07/29/2022 1:33 PM CST Can you schedule her an appointment in [place]? GER TRACK documented in this encounter Plan of Treatment Not on file documented as of this encounter Visit Diagnoses Not on filedocumented in this encounter Additional Health Concerns Assessment Noted Time PHQ-9 Depression Total Score: 12 022 9:04 AM CDT documented as of this encounter Care Teams Human Resources Technician Relationship Specialty Start Date End Date Radha Goldstein NP [address] [place] [address] PCP - General NURSE PRACTITIONER 07/13/21 documented as of this encounter
--- OUTSIDE RECORDS SUMMARY | 2025-02-09 17:49 | XMS_ITS | Encounter Summary ---
Author Organization [facility] Address [address] [place] [address] Care Team Providers Care Body Shop Mechanic Name Role Phone Radha Goldstein NP Primary Care Provider [phone] [phone] Encounter Details Date Type Department Care Team (Late st Contact Info) Description 10/31/2023 EnerG2 Message Enc [facility] Medical Group Family Medicine - [place] [address] [facility] [address] [place] [address] [phone] Radha Goldstein NP [address] [place] [address] [place], [place] [address] Barbara Social History Tobacco Use Types Packs/Day [...] Sex Assigned at Female 09/14/2024 8:12 AM AUTOMOTIVE QUALITY MANAGER Legal Sex Female 7:25 PM CDT Gender Identity Not on file Sexual Orientation Not on file documented as of this encounter Plan of Treatment Not on file documented as of this encounter Visit Diagnoses Not on filedocumented in this encounter Additional Health Concerns Assessment Noted Time PHQ-9 Depression Total Score: 14 023 3:32 PM CDT documented as of this encounter Care Teams Body Shop Mechanic Relationship Specialty Start Date End Date Radha Goldstein NP [address] [place] [address] [place] [address] PCP - General NURSE PRACTITIONER 07/13/21 documented as of this encounter
--- OUTSIDE RECORDS SUMMARY | 2025-02-09 17:49 | XMS_ITS | Encounter Summary ---
Author Organization [facility] Address [address] [place] [address] Care Team Providers Care Surface Plate Finisher Name Role Phone Radha Goldstein SCRUB WHEEL OPERATOR Primary Care Provider [phone] -[phone] Encounter Details Date Type Department Care Team (Late st Contact Info) Description 01/02/2024 [employer] Message Enc [facility] Medical Group Family Medicine [facility] [address] [facility] [address] [place], [place] [address] [facility] Social History Tobacco Use [...] Sex Assigned at Female 09/14/2024 8:12 AM MOLD CHANGER Legal Sex Female 7:25 PM CDT Gender Identity Not on file Sexual Orientation Not on file documented as of this encounter Plan of Treatment Not on file documented as of this encounter Visit Diagnoses Not on filedocumented in this encounter Additional Health Concerns Assessment Noted Time PHQ-9 Depression Total Score: 14 023 3:32 PM CDT documented as of this encounter Care Teams Surface Plate Finisher Relationship Specialty Start Date End Date Radha Goldstein NP [address] [place], [place] [address] PCP - General NURSE PRACTITIONER 07/13/21 documented as of this encounter
--- OUTSIDE RECORDS SUMMARY | 2025-02-09 17:49 | XMS_ITS | Encounter Summary ---
Author Organization [facility] Address [address] [place] [address] Care Team Providers Care Fiberglass Product Tester Name Role Phone Radha Goldstein NP Primary Care Provider [phone] Encounter Details Date Type Department Care Team (Late st Contact Info) Description 05/11/2024 Marketfish Message Enc [facility] Family Medicine - [place] [address] [facility] [address] [place] [phone] Radha Goldstein NP [address] [place], [place] [address] Adderall Social History Tobacco Use Types Packs/Day [...] Sex Assigned at Female 09/14/2024 8:12 AM TRUCK TERMINAL MANAGER Legal Sex Female 7:25 PM CDT Gender Identity Not on file Sexual Orientation Not on file documented as of this encounter Plan of Treatment Not on file documented as of this encounter Visit Diagnoses Not on filedocumented in this encounter Additional Health Concerns Assessment Noted Time PHQ-9 Depression Total Score: 14 023 3:32 PM CDT documented as of this encounter Care Teams Fiberglass Product Tester Relationship Specialty Start Date End Date Radha Goldstein NP [address] [place] [address] PCP - General NURSE PRACTITIONER 07/13/21 documented as of this encounter
--- OUTSIDE RECORDS SUMMARY | 2025-02-09 17:49 | XMS_ITS | Referral Summary ---
Author Organization [facility] Address [address] [place] [address] Care Team Providers Care Recreation Manager Name Role Phone Miscellaneous, Not In File Primary Care Provider Unavailable Encounters Date Type Department Care Team Description 01/27/2025 8:30 AM CDT Office Visit [facility] Sports Medicine and Primary Care at [address] [address] Samuel Mendoza DO Left elbow pain (Primary Dx) 01/13/2025 11:00 AM CDT Ancillary Procedure [facility] Imaging at [address] [address] Left elbow pain 01/13/2025 10:55 AM CDT Ancillary Procedure [facility] Imaging at [address] [address] Left elbow pain 01/13/2025 10:15 AM CDT Office Visit [facility] Sports Medicine and Primary Care at [address] [address] Samuel Mendoza DO Left elbow pain (Primary Dx) 01/05/2025 2:30 PM CDT Office Visit [facility] Sports Medicine and Primary Care at [address] [address] Samuel Mendoza DO Left elbow pain (Primary Dx) from Last 3 Months Allergies No known active allergies Medications docusate [...] 1 capsule (20 mg total) by mouth clinical social worker before breakfast 12/08/19 25 Active buPROPion SR [...] on file Legal Sex Female 4:22 AM BOTTOMING ROOM SUPERVISOR Gender Identity Not on file Sexual [...] 01/27/2025 8:35 AM CDT Plan of Treatment Not on file Procedures Procedure Name Priority Date/Time Associated Diagnosis [...] by Samuel Garcia M.D. T: Report ID: [id number] Reading Location: [id number] Procedure Note Samuel Gacria MD - 01/13/2025 EXAM DESCRIPTION: XR ELBOW [...] by Samuel Garcia M.D. T: Report ID: [id number] Reading Location: [place] [address] Samuel Mendoza DO IMG XR PROCEDURES Nara [...] by Samuel Garcia M.D. T: Report ID: [id number] Reading Location: [id number] Procedure Note Samuel Garcia MD - 01/13/2025 [...] by Samuel Garcia M.D. T: Report ID: [id number] Reading Location: [id number] Samuel Mendoza DO IMG XR PROCEDURES Nara l Result from Last 3 Months Insurance [place] [facility] Care Teams Recreation Manager Relationship Specialty Start Date End Date Miscellaneous, Not In File PCP - General 10/09/16
--- OUTSIDE RECORDS SUMMARY | 2025-02-09 17:49 | XMS_ITS | Clinical Summary ---
Author Organization [facility] Address [address] [place] [address] Care Team Providers Care Historical Guide Name Role Phone Radha Goldstein NP Primary Care Provider [phone] Allergies Active Allergy Reactions Criticality Noted Date Comments Tape Rash Medium 11/26/2016 Medications Multiple Vitamins-Minerals (MULTIVITAMIN ADULT OR) Active ibuprofen 800 MG tablet 1 Active cetirizine 10 MG tablet Take 1 tablet (10 mg total) by mouth daily. Active cyanocobalamin 250 MCG Tab Take 1 tablet (250 mcg total) by mouth daily. Active levonorgestrel (MIRENA) 20 MCG/DAY IUD 2 Active busPIRone (BUSPAR) 10 MG tabletIndications :Generalized anxiety disorder Take 1 tablet (10 mg total) by mouth 2 (two) times daily. 180 tablet 1 4 Active buPROPion SR (WELLBUTRIN SR) 150 MG 12 hr tabletIndications :Anxiety and depression Take 1 tablet (150 mg total) by mouth daily. 90 tablet 1 5 Active albuterol sulfate HFA 108 (90 Base) MCG/ACT inhalerIndication s:Mild intermittent asthma without complication (HHS/HCC) Inhale 2 puffs into the lungs every 6 (six) hours as needed for Wheezing. 18 g 5 Active amphetamine-dextr oamphetamine XR (ADDERALL XR) 20 MG 24 hr capsuleIndication s:Attention deficit hyperactivity disorder (ADHD), combined type Take 1 capsule (20 mg total) by mouth every morning. 30 capsule 5 Active valACYclovir (VALTREX) 1 g tabletIndications :Cold sore Take 2 tablets (2,000 mg total) by mouth 2 (two) times daily for 1 day. 4 tablet 3 01/28/20 25 Discontinu ed(Reorder ) albuterol sulfate HFA 108 (90 Base) MCG/ACT inhalerIndication s:Mild intermittent asthma without complication (HHS/HCC) Inhale 2 puffs into the lungs every 6 (six) hours as needed for Wheezing. 18 g 4 02/09/20 25 Discontinu ed(Reorder ) amphetamine-dextr oamphetamine XR (ADDERALL XR) 20 MG 24 hr capsuleIndication s:Attention deficit hyperactivity disorder (ADHD), combined type Take 1 capsule (20 mg total) by mouth every morning. 30 capsule 5 02/09/20 25 Discontinu ed(Reorder ) valACYclovir (VALTREX) 1 g tabletIndications :Cold sore Take 2 tablets (2,000 mg total) by mouth 2 (two) times daily for 1 day. 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 Is hypermobile.Autoimmune workup in the past has been negative. Pt was told from a past provider she has fibromyalgia but pt is not really sure. She also wonders based on her age some symptoms she suffers from could be perimenopausal. Assessment & Plan (07/30/2024 8:56 AM POPULATION GENETICIST): I went over with pt information that I know about EDS and how there are different types. We went over management of hypermobility and recommendations on specialists/referrals that can be placed for further evaluation if necessary. Attention deficit hyperactiv ity disorder (ADHD), combined type 01/07/2024 Overview (07/30/2024): Chronic condition. Doing well with Adderall 20 mg once daily. Assessment & Plan (07/30/2024 8:57 AM POPULATION GENETICIST): Chronic condition. Controlled. No change at this time. CSA complated today. Denies side effects with use of Adderall. Constipation, unspecified constipation type 04/26 Generalized anxiety disorder 05/20/2023 Overview (07/30/2024): Chronic condition. Currently doing well with Wellbutrin 150 mg a day and buspirone 10 mg twice daily. Assessment & Plan (07/30/2024 8:16 AM POPULATION GENETICIST): Chronic condition. Controlled. No med changes at this time. Chronic pain 06/04/2016 Chronic migraine without aur a without status migrainosus, not intractable 10/25/2014 Overview (07/30/2024): Chronic condition. Receives botox to help with her migraines. Assessment & Plan (07/30/2024 8:57 AM POPULATION GENETICIST): Chronic condition. Controlled with botox injections. Depression 08/29/2014 Extrinsic asthma ([facility]) 08/29/2014 Allergic rhinitis 02/14/2014 Insomnia 02/14/2014 Anxiety 01/13/2014 Acne 08/11/2012 Resolved Problems Problem Noted Date Diagnosed Date Resolved Date Blood in stool 05/20/2023 07/30/2024 Alcohol use 05/20/2023 2023 Cellulitis of right knee 10/06/202101/2024 Urticaria 02/15/2020 07/30/2024 Acute pain of right shoulder 01/26/2020 07/30/2024 Chronic daily headache 01/28/201807/30 Obesity 08/11/2012 07/30/2024 Encounters Date Type Department Care Team Description 02/01/2025 Telephone [facility] Family Medicine - [place] [address] [place] [address] Radha Goldstein NP Other 01/27/2025 Orders Only [facility] Family Medicine - [place] [address] [place] [address] Demetria Cameron MA 01/27/[address] [facility] Family Medicine - [place] [address] [place] [address] Radha Goldstein NP Cold sore 12/24/2024 Scan [facility] SRVCS Scanned, Doc Med Group Image (SCAN) from Last 3 Months Immunizations Immunization Administration [...] Sex Assigned at Female 09/14/2024 8:12 AM POPULATION GENETICIST Legal Sex Female 7:25 PM CDT Gender Identity Not on file Sexual Orientation Not on file Last Filed Vital Signs Vital Sign Reading Time Taken Comments Blood Pressure 96/64 07/30/2024 8:10 AM POPULATION GENETICIST Pulse 81 07/30/2024 8:10 AM POPULATION GENETICIST Temperature 36.4 C (97.5 F) 07/30/2024 8:10 AM POPULATION GENETICIST Respiratory Rate 18 07/30/2024 8:10 AM POPULATION GENETICIST Oxygen Saturation 97% 07/30/2024 8:10 AM POPULATION GENETICIST Inhaled Oxygen Concentration - - Weight 77.1 kg (170 lb) 07/30/2024 8:10 AM POPULATION GENETICIST Height 170.2 cm (5' 7) 07/30/2024 8:10 AM POPULATION GENETICIST Body Mass Index 26.63 07/30/2024 8:10 AM POPULATION GENETICIST Plan of Treatment Health Maintenance Due Date [...] 04/12/2020 03/15/2020, 03/15/2020 COVID-19 Vaccine (3 - season) 2024 09/28/2020, 08/31/2020 PHQ-2 (Physician [place]) 08/25/2024 07/30/2024 Annual Physical 07/30/2025 07/30/2024, 04/26, [...] Procedure Name Priority Date/Time Associated Diagnosis Comments IMAGE GENERIC 12/24/2024 MG DIAG W CHELLY BILAT DIGI GIOVANNA 09/14/2024 8:47 AM POPULATION GENETICIST Abnormal mammogram of both breasts HEPATITIS C ANTIBODY Routine 09/27/2022 9:03 AM POPULATION GENETICIST Need for hepatitis C screening test from Last 3 Months or Most Recently Relevant to Health Maintenance Results * IMAGE GENERIC (12/24/2024) Anatomical Region Laterality Modality Other 12/24/2024 us Doc [facility] Scanned SCANNING Final Resu lt * MG DIAG W CHELLY BILAT DIGI (09/14/2024 8:47 AM POPULATION GENETICIST) Anatomical Region Laterality Modality Breast Bilateral Mammography 09/14/2024 8:55 AM POPULATION GENETICIST Impressions 09/14/2024 8:57 AM POPULATION GENETICIST =====IMPRESSION:===== No mammographic findings suggestive of malignancy ASSESSMENT: ACR BI-RADS 2 - BENIGN FINDING(S) Recommendation: 1: Routine Screening Bilateral COMMENTS: Ordered By: RADHA GOLDSTEIN Interpreted By: Mayank Pedersen, 09/14/2024 8:55 AM Narrative 09/14/2024 8:57 AM POPULATION GENETICIST [facility] [address] [place] [address] EXAMINATION: Digital bilateral diagnostic mammogram with 3-D [...] findings in the left breast. Radha Goldstein DIRECTOR OF COMMUNITY SERVICES MAMMO Final Res ult * HEPATITIS C AB ([facility] ONLY) (09/27/2022 9:03 AM POPULATION GENETICIST) HEPATITIS C AB NON-REACTI VE NON-REACT ANA 09/27/2022 4:43 PM POPULATION GENETICIST [facility] Comment: ANTIBODIES TO HCV NOT DETECTED. DOES NOT EXCLUDE THE POSSIBILITY OF EXPOSURE TO HCV. 09/27/2022 9:03 AM POPULATION GENETICIST Radha Goldstein DIRECTOR OF COMMUNITY SERVICES LABORATORY Final Res ult [facility] [address] [place] [address], [id number] from Last 3 Months or Most Recently Relevant to Health Maintenance Insurance [facility] Care Teams Historical Guide Relationship Specialty Start Date End Date Radha Goldstein NP [address] [place] [address] PCP - General NURSE PRACTITIONER 07/13/21
--- OUTSIDE RECORDS SUMMARY | 2025-02-09 17:49 | XMS_ITS | Clinical Summary ---
Author Organization [facility] Address [address] [facility] [place] [address] Care Team Providers Care Wireworker Name Role Phone Markus Olson MD Primary Care Provider [phone] Source Comments [facility],non-owned Affiliates and Associated Physician Practices is amultiple site organization consisting of ambulatory clinics and hospital sitesin [place] and [place]. This disclosure is being madepursuant to the Care Everywhere program and may not contain all information available regarding this patient. Last updated 18.[facility] Allergies No known active allergies Medications * [...] on file Legal Sex Female 9:42 PM VACUUM EVAPORATION OPERATOR Gender Identity Not on file Sexual Orientation Not on file Last Filed Vital Signs Vital Sign Reading Time Taken Comments Blood Pressure 100/70 10/20/2017 10:53 AM VACUUM EVAPORATION OPERATOR Pulse 111 10/20/2017 10:53 AM VACUUM EVAPORATION OPERATOR Temperature 36.8 C (98.3 F) 10/20/2017 10:53 AM VACUUM EVAPORATION OPERATOR Respiratory Rate 16 10/20/2017 10:53 AM VACUUM EVAPORATION OPERATOR Oxygen Saturation 95% 10/20/2017 10:53 AM VACUUM EVAPORATION OPERATOR Inhaled Oxygen Concentration - - Weight 86.2 kg (190 lb) 10/20/2017 10:53 AM VACUUM EVAPORATION OPERATOR Height 166.4 cm (5' 5.5) 10/20/2017 10:53 AM CS T Body Mass Index 31.14 10/20/2017 10:53 AM VACUUM EVAPORATION OPERATOR Plan of Treatment Health Maintenance Due Date Last Done Comments LIPID TESTING 1982 MAMMOGRAM 1982 HIV SCREENING 1997 HEPATITIS C SCREENING 05/21/2000 DTAP/TDAP/TD VACCINES (1 - Tdap) 2001 HEPATITIS B VACCINE (1 of 3 - 19+ 3-dose series) 2001 PAP SMEAR 2003 COVID-19 VACCINE (1 - 2023-2 5 season) [...] Name:Genoveva West Payer ID:[id number] (NAIC) Type:PPO Address: [place] [phone] ANTHEM Member Subscriber Plan / Payer (Ef fective for All Dates) Name:Genoveva West Relation to Subscriber:Self Name:Genoveva West Payer ID:[id number] (NAIC) Type:PPO Address: [place] [phone] Care Teams Wireworker Relationship Specialty Start Date End Date Markus Olson MD PCP - General Family Medicine 10/20/17
--- OUTSIDE RECORDS SUMMARY | 2025-02-09 17:49 | XMS_ITS | Encounter Summary ---
Author Organization [facility] Address [address] [place] [address] Care Team Providers Care Clinic Manager Name Role Phone Radha Goldstein NP Primary Care Provider [phone] Encounter Details Date Type Department Care Team (Late st Contact Info) Description 09/27/2022 GroupVox Message Enc [facility] Family Medicine - [place] [address] [facility] [address] [place] [phone] Radha Goldstein, BHARGAV [address] [place] [address] Question regarding CBC W/DIFF AUTOMATED Social History [...] Sex Assigned at Female 09/14/2024 8:12 AM MASON HELPER Legal Sex Female 7:25 PM CDT Gender Identity Not on file Sexual Orientation Not on file COVID-19 Exposure Response Date Recorded In the last 10 days, have yo u been in contact with someone who was confirmed or suspected to have Coronavirus/COVID-19? No / Unsure 09/27/2022 8:49 AM MASON HELPER documented as of this encounter Plan of Treatment Not on file documented as of this encounter Visit Diagnoses Not on filedocumented in this encounter Additional Health Concerns Assessment Noted Time PHQ-9 Depression Total Score: 12 022 9:04 AM CDT documented as of this encounter Care Teams Clinic Manager Relationship Specialty Start Date End Date Radha Goldstein NP [address] [place] [address] PCP - General NURSE PRACTITIONER 07/13/21 documented as of this encounter
--- OUTSIDE RECORDS SUMMARY | 2025-02-09 17:49 | XMS_ITS | Encounter Summary ---
Author Organization [facility] Address [address] [place] [address] Care Team Providers Care Autism Tutor Name Role Phone Radha Goldstein NP Primary Care Provider [phone] Encounter Details Date Type Department Care Team (Late st Contact Info) Description 10/25/2024 GetFresh Message Enc [facility] Family Medicine - [place] [address] [facility] [address] [place] [phone] Radha Goldstein NP [address] [place], [place] [address] Elizabeth Choi Social History Tobacco Use Types [...] Sex Assigned at Female 09/14/2024 8:12 AM DELIVERY AND INSTALLATION SUBCONTRACTOR Legal Sex Female 7:25 PM CDT Gender Identity Not on file Sexual Orientation Not on file documented as of this encounter Progress Notes * Radha Goldstein NP - 10/25/2024 11:20 AM CST Let pt's mom know the reason. If there was ever a change if condition I don't feel comfortable providing a note without doing an initial examination. VERY AND INSTALLATION SUBCONTRACTOR * Radha Goldstein NP - 10/25/2024 10:35 AM CST I will be able to provide a note below but I will need to see her first for an initial examination. VERY AND INSTALLATION SUBCONTRACTOR documented in this encounter Plan of Treatment Not on file documented as of this encounter Visit Diagnoses Not on filedocumented in this encounter Additional Health Concerns Assessment Noted Time PHQ-9 Depression Total Score: 9 07/30/20 24 8:14 AM DELIVERY AND INSTALLATION SUBCONTRACTOR documented as of this encounter Care Teams Autism Tutor Relationship Specialty Start Date End Date Radha Goldstein NP [address] [place] [address] PCP - General NURSE PRACTITIONER 07/13/21 documented as of this encounter
[2025-02-09 18:12] LABS: Thyroid Stimulating Hormone 0.964 uIU/mL (0.465-4.680)
== END 2025-02-09 17:14 | disposition home or self-care (01) ==
LOC: ANHLAB 17:14
PROVIDERS: PCP Nurse Practitioner; Visit Provider Student in an Organized Health Care Education/Training Program
DX: N95.1 Menopausal and female climacteric states (principal)
CPT/HCPCS: 36415; 82670; 83001; 84443